=== PATIENT | female | born 1945 | race Caucasian/White ===

== ENCOUNTER → 2016-06-09 | Outpatient (CLI) | payer OTHER ==
[2016-06-09 14:26] LABS: Blood Urea Nitrogen 21 mg/dL (7-17); Non-African American GFR(MDRD) >60 (>60 ml/min/1.73 sqM)
--- NOTE | 2016-06-09 14:53 | US ---
EXAMINATION TYPE: US carotid duplex BILAT DATE OF EXAM: 06/09/2016 2:32 PM COMPARISON: NONE CLINICAL HISTORY: R20.0 Anesthesia of skin. Tingling right face EXAM MEASUREMENTS: RIGHT: Peak Systolic Velocity (PSV) cm/sec ----- Right CCA: 85.6 ----- Right ICA: 135.7 ----- Right ECA: 155.5 ICA/CCA ratio: 1.6 RIGHT: End Diastole cm/sec ----- Right CCA: 20.8 ----- Right ICA: 43.1 ----- Right ECA: 13.6 LEFT: Peak Systolic Velocity (PSV) cm/sec ----- Left CCA: 132.3 ----- Left ICA: 139.8 ----- Left ECA: 137.8 ICA/CCA ratio: 1.1 LEFT: End Diastole cm/sec ----- Left CCA: 32.1 ----- Left ICA: 39.2 ----- Left ECA: 13.6 VERTEBRALS (direction of flow): Right Vertebral: Antegrade Left Vertebral: Antegrade Moderate plaque bilateral bifurcations. Mildly Increased velocities bilateral ICA's and bilateral ECA 's IMPRESSION: Moderate plaque without hemodynamically significant stenosis. Criteria for Assigning % of Stenosis / Diameter reduction (Estimation based on the indirect measurements of the internal carotid artery velocities (ICA PSV). 1. Normal (no stenosis)=ICA PSV < 125 cm/s: ratio < 2.0: ICA EDV<40 cm/s. 2. Less than 50% stenosis=ICA PSV < 125 cm/s: ratio < 2.0: ICA EDV<40 cm/s. 3. 50 to 69% stenosis=ICA PSV of 125 to 230 cm/s: ration 2.0 ? 4.0: ICA EDV 40-100 cm/s. 4. Greater than 70% stenosis to near occlusion= ICA PSV > 230 cm/s: ratio > 4.0: ICA EDV > 100 cm/s. 5. Near occlusion= ICA PSV velocities may be low or undetectable: variable ratio and ICA EDV. 6. Total occlusion=unable to detect flow.
--- NOTE | 2016-06-09 15:03 | CT ---
EXAMINATION TYPE: CT brain wo/w con DATE OF EXAM: 06/09/2016 2:58 PM COMPARISON: NONE HISTORY: Anesthesia to face CT DLP: 1891.0 mGycm Automated exposure control for dose reduction was used. CONTRAST: CT scan of the head is performed with IV Contrast, patient injected with 100 mL of Omnipaque 300. FINDINGS: Central structures are midline. There is no evidence of hydrocephalus. There is mild, diffuse periven tricular white matter lucency, consistent with small vessel ischemic change. There is no mass effect, midline shift or intracranial blood. Following intravenous administration of contrast, I do not see evidence of abnormal enhancement. Visualized portions of the paranasal sinuses and mastoids are clear. There is no depressed skull frac ture. IMPRESSION: 1. No acute intracranial abnormality. 2. Chronic white matter ischemic change.
== END | disposition home or self-care (01) ==
LOC: RADCTMAIN 13:52
PROVIDERS: ATTEND Family Medicine
DX: I65.23 Occlusion and stenosis of bilateral carotid arteries (principal); I67.82 Cerebral ischemia
CPT/HCPCS: 82565; 84520; 93880; 70470; 36415; Q9967

== ENCOUNTER → 2017-01-05 | Outpatient (CLI) | payer OTHER ==
--- NOTE | 2017-01-06 11:01 | MM ---
Reason for exam: screening (asymptomatic). Last mammogram was performed 1 year and 1 month ago. History: Patient is postmenopausal. Family history of breast cancer in paternal aunt at age 20. Took hormonal contraceptives for 2 years beginning at age 26. Physical Findings: A clinical breast exam by your physician is recommended on an annual basis and results should be correlated with mammographic findings. MG Screening Mammo w CAD Bilateral CC and MLO view(s) were taken. Prior study comparison: December 05, 2015, bilateral MG screening mammo w CAD. December 29, 2013, bilateral MG screening mammo w CAD. The breast tissue is heterogeneously dense. This may lower the sensitivity of mammography. Stable benign calcifications. There is no discrete abnormality. No significant changes when compared with prior studies. ASSESSMENT: Benign, BI-RAD 2 RECOMMENDATION: Routine screening mammogram of both breasts in 1 year.
== END | disposition home or self-care (01) ==
LOC: RADMAMWWP 07:47
PROVIDERS: ATTEND Family Medicine
DX: Z12.31 Encounter for screening mammogram for malignant neoplasm of breast (principal)

== ENCOUNTER 2017-04-19 00:02 | Inpatient (IN) | payer OTHER, MEDICARE ==
[2017-04-19] MEDS ORDERED: SODIUM CHLORIDE 0.9% 1,000 ML IV STA (00:29)
--- NOTE | 2017-04-19 00:40 | ED ---
General Adult HPI - General Chief complaint: Chest Pain Stated complaint: Chest pain, back pain Time Seen by Provider: 04/19/17 00:11 Source: patient, RN notes reviewed, old records reviewed Mode of arrival: ambulatory Limitations: no limitations - History of Present Illness Initial comments: This is a 71-year-old female to the ER for evasive chest pain. Patient has severe right left sided chest pain. Heaviness in her chest. Patient also complaining of back pain in the left shoulder. Patient does say that pain does come and go ahead and for while. She does have high blood pressure high cholesterol. She states she also gets extremely elevated blood pressure which is in the hospital. Patient denies nausea vomiting no significant shortness of breath currently. Patient said she was not taking anything irregular with a chest pain started having of her chest. With no diaphoresis or shortness of breath. No recent travel history or sick contacts, no cough congestion or fever - Related Data Home Medications Medication Instructions Recorded Confirmed Aspirin [Adult Low Dose Aspirin EC] 81 mg PO 04/19/17 Allergies Allergy/AdvReac Type Severity Reaction Status Date / Time amoxicillin Allergy Rash/Hives Verified 04/19/17 00:09 Review of Systems ROS Statement: Those systems with pertinent positive or pertinent negative responses have been documented in the HPI. ROS Other: All systems not noted in ROS Statement are negative. Past Medical History Past Medical History: No Reported History History of Any Multi-Drug Resistant Organisms: None Reported Past Surgical History: No Surgical Hx Reported Past Psychological History: No Psychological Hx Reported Smoking Status: Former smoker Past Alcohol Use History: None Reported Past Drug Use History: None Reported General Exam Limitations: no limitations General appearance: alert, in no apparent distress, anxious Head exam: Present: atraumatic, normocephalic, normal inspection Eye exam: Present: normal appearance, PERRL, EOMI. Absent: scleral icterus, conjunctival injection, periorbital swelling ENT exam: Present: normal exam, mucous membranes moist Neck exam: Present: normal inspection. Absent: tenderness, meningismus, lymphadenopathy Respiratory exam: Present: normal lung sounds bilaterally. Absent: respiratory distress, wheezes, rales, rhonchi, stridor Cardiovascular Exam: Present: regular rate, normal rhythm, normal heart sounds. Absent: systolic murmur, diastolic murmur, rubs, gallop, clicks GI/Abdominal exam: Present: soft, normal bowel sounds. Absent: distended, tenderness, guarding, rebound, rigid Extremities exam: Present: normal inspection, full ROM, normal capillary refill. Absent: tenderness, pedal edema, joint swelling, calf tenderness Back exam: Present: normal inspection Neurological exam: Present: alert, oriented X3, CN II-XII intact Psychiatric exam: Present: normal affect, normal mood Skin exam: Present: warm, dry, intact, normal color. Absent: rash Course Vital Signs 04/19/17 04/19/17 04/19/17 00:05 01:44 04:09 Temperature 96.8 F L Pulse Rate 72 75 107 H Respiratory 20 18 18 Rate Blood Pressure 231/97 170/86 176/81 O2 Sat by Pulse 97 97 97 Oximetry - Reevaluation(s) Reevaluation #1: Patient remains a chest pain at this time, spoken at length regarding risks, family and patient understand EKG Findings - EKG Comments: EKG Findings:: EKG shows normal sinus rhythm rate of 76, TX 136, QRS 76, QTc 432 Medical Decision Making - Medical Decision Making 71 female the ER for evaluation of chest pain. Left-sided chest pain rating to back pain to her arm. Patient states she does have history of the back pain no history of chest pressure. Patient does have mild cardiac risk factors, I blood pressure cholesterol, patient will be admitted for cardiac observation - Lab Data Result diagrams: 04/19/17 01:06 04/19/17 01:06 Lab Results 04/19/17 04/19/17 04/19/17 Range/Units 01:06 01:06 01:06 WBC 6.8 (3.8-10.6) k/uL RBC 5.46 H (3.80-5.40) m/uL Hgb 15.9 (11.4-16.0) gm/dL Hct 45.5 (34.0-46.0) % MCV 83.4 (80.0-100.0) fL MCH 29.2 (25.0-35.0) pg MCHC 34.9 (31.0-37.0) g/dL RDW 13.5 (11.5-15.5) % Plt Count 271 (150-450) k/uL Neutrophils % 61 % Lymphocytes % 26 % Monocytes % 7 % Eosinophils % 3 % Basophils % 1 % Neutrophils # 4.1 (1.3-7.7) k/uL Lymphocytes # 1.7 (1.0-4.8) k/uL Monocytes # 0.5 (0-1.0) k/uL Eosinophils # 0.2 (0-0.7) k/uL Basophils # 0.1 (0-0.2) k/uL PT (9.0-12.0) sec INR (<1.2) APTT (22.0-30.0) sec Sodium 143 (137-145) mmol/L Potassium 4.1 (3.5-5.1) mmol/L Chloride 108 H (98-107) mmol/L Carbon Dioxide 22 (22-30) mmol/L Anion Gap 13 mmol/L BUN 20 H (7-17) mg/dL Creatinine 0.90 (0.52-1.04) mg/dL Est GFR (CKD-EPI)AfAm 75 (>60 ml/min/1.73 sqM) Est GFR (CKD-EPI)NonAf 65 (>60 ml/min/1.73 sqM) Glucose 116 H (74-99) mg/dL Calcium 9.9 (8.4-10.2) mg/dL Magnesium 2.1 (1.6-2.3) mg/dL Total Bilirubin 0.7 (0.2-1.3) mg/dL AST 22 (14-36) U/L ALT 20 (9-52) U/L Alkaline Phosphatase 75 (38-126) U/L Total Creatine Kinase 67 (30-135) U/L CK-MB (CK-2) 0.5 (0.0-2.4) ng/mL CK-MB (CK-2) Rel Index 0.7 Troponin I <0.012 (0.000-0.034) ng/mL NT-Pro-B Natriuret Pep pg/mL Total Protein 7.3 (6.3-8.2) g/dL Albumin 4.2 (3.5-5.0) g/dL Lipase 75 (23-300) U/L 04/19/17 04/19/17 Range/Units 01:06 01:06 WBC (3.8-10.6) k/uL RBC (3.80-5.40) m/uL Hgb (11.4-16.0) gm/dL Hct (34.0-46.0) % MCV (80.0-100.0) fL MCH (25.0-35.0) pg MCHC (31.0-37.0) g/dL RDW (11.5-15.5) % Plt Count (150-450) k/uL Neutrophils % % Lymphocytes % % Monocytes % % Eosinophils % % Basophils % % Neutrophils # (1.3-7.7) k/uL Lymphocytes # (1.0-4.8) k/uL Monocytes # (0-1.0) k/uL Eosinophils # (0-0.7) k/uL Basophils # (0-0.2) k/uL PT 9.8 (9.0-12.0) sec INR 1.0 (<1.2) APTT 23.5 (22.0-30.0) sec Sodium (137-145) mmol/L Potassium (3.5-5.1) mmol/L Chloride (98-107) mmol/L Carbon Dioxide (22-30) mmol/L Anion Gap mmol/L BUN (7-17) mg/dL Creatinine (0.52-1.04) mg/dL Est GFR (CKD-EPI)AfAm (>60 ml/min/1.73 sqM) Est GFR (CKD-EPI)NonAf (>60 ml/min/1.73 sqM) Glucose (74-99) mg/dL Calcium (8.4-10.2) mg/dL Magnesium (1.6-2.3) mg/dL Total Bilirubin (0.2-1.3) mg/dL AST (14-36) U/L ALT (9-52) U/L Alkaline Phosphatase (38-126) U/L Total Creatine Kinase (30-135) U/L CK-MB (CK-2) (0.0-2.4) ng/mL CK-MB (CK-2) Rel Index Troponin I (0.000-0.034) ng/mL NT-Pro-B Natriuret Pep 65 pg/mL Total Protein (6.3-8.2) g/dL Albumin (3.5-5.0) g/dL Lipase (23-300) U/L - Radiology Data Radiology results: report reviewed (CTA chest negative for acute disease), image reviewed Critical Care Time Critical Care Time: Yes Total Critical Care Time: 31 Disposition Clinical Impression: Chest pain Disposition: ADMITTED IP TO THIS HOSP Condition: Undetermined
[2017-04-19] MEDS ORDERED: RX INFO: IV CONTRAST WAS GIVEN 1 EACH MISC MISCELLANE PRN ×2 (00:58→11:58)
[2017-04-19 01:20] LABS: Basophils # (A) 0.1 k/uL (0-0.2); Basophils % (A) 1 %; Eosinophils # (A) 0.2 k/uL (0-0.7); Eosinophils % (A) 3 %; HCT 45.5 % (34.0-46.0); HGB 15.9 gm/dL (11.4-16.0); Lymphocytes # (A) 1.7 k/uL (1.0-4.8); Lymphocytes % (A) 26 %; MCH 29.2 pg (25.0-35.0); MCHC 34.9 g/dL (31.0-37.0); MCV 83.4 fL (80.0-100.0); Mean Platelet Volume 7.4; Monocytes # (A) 0.5 k/uL (0-1.0); Monocytes % (A) 7 %; Neutrophils # (A) 4.1 k/uL (1.3-7.7); Neutrophils % (A) 61 %; Platelet Count 271 k/uL (150-450); RBC 5.46 m/uL (3.80-5.40); RDW 13.5 % (11.5-15.5); WBC 6.8 k/uL (3.8-10.6)
[2017-04-19 01:30] LABS: Albumin 4.2 g/dL (3.5-5.0); Calcium 9.9 mg/dL (8.4-10.2); Magnesium 2.1 mg/dL (1.6-2.3); Potassium 4.1 mmol/L (3.5-5.1); Total Bilirubin 0.7 mg/dL (0.2-1.3); Total Protein 7.3 g/dL (6.3-8.2)
[2017-04-19 01:34] LABS: Partial Thromboplastin Time 23.5 sec (22.0-30.0); Prothrombin Time 9.8 sec (9.0-12.0)
[2017-04-19 01:49] LABS: Creatine Kinase 67 U/L (30-135)
[2017-04-19 03:02] LABS: Creatine Kinase MB 0.5 ng/mL (0.0-2.4); Troponin I <0.012 ng/mL (0.000-0.034)
--- NOTE | 2017-04-19 03:19 | CT ---
EXAMINATION TYPE: CT angio chest DATE OF EXAM: 04/19/2017 3:10 AM COMPARISON: NONE HISTORY: chest pain CT DLP: 257.80 mGycm Automated exposure control for dose reduction was used. CONTRAST: CTA scan of the thorax is performed with IV Contrast, patient injected with 70 mL of Omnipaque 350, p ulmonary embolism protocol. There are 3-D post processed images.. FINDINGS: There is minimal linear density at the right posterior lung base. There is no pleural effusion. There is no evidence of a pulmonary mass. Thoracic aorta is intact. There is no sign of aneurysm or dissection. Heart size is normal. There is no pericardial effusion. I see no filling defects in the pulmonary arteries. There are no hilar masses. There is no mediastina l adenopathy. There is minimal atheromatous change in the thoracic aorta. There is mild spurring in t he thoracic spine.. IMPRESSION: NO EVIDENCE OF PULMONARY EMBOLISM. MINIMAL SUBSEGMENTAL ATELECTASIS AT THE RIGHT LUNG BASE. SMALL HIA NATANAEL HERNIA IS NOTED. MINIMAL PULMONARY EMPHYSEMA.
[2017-04-19] MEDS ORDERED: HEPARIN SODIUM,PORCINE 5,000 UNIT/ML 1 ML VIAL IV PRN (03:45)
[2017-04-19] MEDS ORDERED: HEPARIN SODIUM,PORCINE 5,000 UNIT/ML 1 ML VIAL IV ONE (03:45)
[2017-04-19] MEDS ORDERED: MORPHINE SULFATE 4 MG/ML SYRINGE IV PRN (03:45)
[2017-04-19] MEDS ORDERED: ASPIRIN 81 MG PO STA (03:45)
[2017-04-19] MEDS ORDERED: NITROGLYCERIN SL TABS 0.4 MG TAB SUBLINGUAL PRN (03:45)
[2017-04-19] MEDS: HEPARIN SOD,PORK IN 0.45% NACL 25,000 UNIT in 0.45% NACL 1 500ML.BAG IV SCH (04:22)
[2017-04-19 08:41] LABS: Mean Platelet Volume 7.3; Platelet Count 255 k/uL (150-450)
[2017-04-19] MEDS ORDERED: ATORVASTATIN 80 MG TAB PO SCH (09:00)
[2017-04-19] MEDS ORDERED: METOPROLOL TARTRATE 25 MG TAB PO SCH (09:00)
[2017-04-19 09:13] LABS: Creatine Kinase MB 1.2 ng/mL (0.0-2.4)
[2017-04-19 09:17] LABS: Troponin I 0.232 ng/mL (0.000-0.034)
[2017-04-19 13:45] LABS: Creatine Kinase MB 1.6 ng/mL (0.0-2.4)
[2017-04-19 13:49] LABS: Troponin I 0.227 ng/mL (0.000-0.034)
--- NOTE | 2017-04-19 14:04 | P.CRDCN ---
History of Present Illness History of present illness: Patient admitted with chest discomfort, recurrent for the last 2-3 days elevated blood pressure readings at home On examination Afebrile 97.6F, pulse rate in the 60s and 70s, blood pressure 176/81 mmHg Heart sounds are normal no murmurs no gallops no rub breath sounds are clear no rhonchi no crackles Abdomen soft nontender Extremities warm no edema No chronic bruits no JVD 2 normal serial EKGs Impression 71-year-old female presenting with interscapular chest discomfort and midsternal chest discomfort no associated symptoms Abnormal cardiac enzymes 0.012 followed by 0.2 and 0.2 History of dyslipidemia patient stopped statins on account of leg pains but the leg pains continued thereafter Elevated blood pressure readings Suggest Losartan 50 g by mouth daily Carvedilol 3.125 mg twice daily Atorvastatin 40 mg by mouth daily Baby aspirin Reevaluation after blood pressure control Past Medical History Past Medical History: No Reported History History of Any Multi-Drug Resistant Organisms: None Reported Past Surgical History: No Surgical Hx Reported Past Psychological History: No Psychological Hx Reported Smoking Status: Former smoker Past Alcohol Use History: None Reported Past Drug Use History: None Reported Medications and Allergies Home Medications Medication Instructions Recorded Confirmed Type Aspirin [Adult Low Dose Aspirin EC] 81 mg PO W/SUPPER 04/19/17 04/19/17 History Cholecalciferol (Vitamin D3) 2,000 unit PO W/SUPPER 04/19/17 04/19/17 History [Vitamin D3] Cyanocobalamin (Vitamin B-12) 1,000 mcg PO W/SUPPER 04/19/17 04/19/17 History [Vitamin B-12] Ubidecarenone [Co Q-10] 100 mg PO W/SUPPER 04/19/17 04/19/17 History Allergies Allergy/AdvReac Type Severity Reaction Status Date / Time amoxicillin Allergy Rash/Hives Verified 04/19/17 07:21 Physical Exam Vitals: Vital Signs Temp Pulse Resp BP Pulse Ox 04/19/17 13:46 97.6 F 73 18 190/98 96 04/19/17 11:31 69 18 188/83 98 04/19/17 09:40 80 18 161/86 96 04/19/17 06:00 74 18 144/80 96 04/19/17 04:09 107 H 18 176/81 97 04/19/17 01:44 75 18 170/86 97 04/19/17 00:05 96.8 F L 72 20 231/97 97 Intake and Output 04/18/17 04/19/17 04/19/17 21:59 06:59 14:59 Other: Weight Results 04/19/17 08:23 04/19/17 01:06 Cardiac Enzymes 04/19/17 04/19/17 04/19/17 Range/Units 01:06 01:06 08:23 AST 22 (14-36) U/L CK-MB (CK-2) 0.5 1.2 (0.0-2.4) ng/mL Troponin I <0.012 0.232 H* (0.000-0.034) ng/mL 04/19/17 Range/Units 12:36 AST (14-36) U/L CK-MB (CK-2) 1.6 (0.0-2.4) ng/mL Troponin I 0.227 H* (0.000-0.034) ng/mL Coagulation 04/19/17 04/19/17 Range/Units 01:06 08:23 PT 9.8 (9.0-12.0) sec APTT 23.5 53.0 H (22.0-30.0) sec CBC 04/19/17 04/19/17 Range/Units 01:06 08:23 WBC 6.8 (3.8-10.6) k/uL RBC 5.46 H (3.80-5.40) m/uL Hgb 15.9 (11.4-16.0) gm/dL Hct 45.5 (34.0-46.0) % Plt Count 271 255 (150-450) k/uL Comprehensive Metabolic Panel 04/19/17 Range/Units 01:06 Sodium 143 (137-145) mmol/L Potassium 4.1 (3.5-5.1) mmol/L Chloride 108 H (98-107) mmol/L Carbon Dioxide 22 (22-30) mmol/L BUN 20 H (7-17) mg/dL Creatinine 0.90 (0.52-1.04) mg/dL Glucose 116 H (74-99) mg/dL Calcium 9.9 (8.4-10.2) mg/dL AST 22 (14-36) U/L ALT 20 (9-52) U/L Alkaline Phosphatase 75 (38-126) U/L Total Protein 7.3 (6.3-8.2) g/dL Albumin 4.2 (3.5-5.0) g/dL Current Medications Generic Name Dose Route Start Last Admin Trade Name Freq PRN Reason Stop Dose Admin Aspirin 325 mg 04/20/17 09:00 Aspirin PO DAILY [facility] Atorvastatin Calcium 40 mg 04/19/17 13:30 Lipitor PO DAILY [facility] Heparin Sodium (Porcine) 0 unit 04/19/17 03:45 Heparin IV Q6HR PRN Low PTT Protocol Heparin Sodium/Sodium Chloride 500 mls @ 16.32 mls/hr 04/19/17 03:45 04:22 25,000 unit/ Sodium Chloride IV 12 units/kg/hr .Q24H JOVANNI 16.32 mls/hr Protocol Administration 12 UNITS/KG/HR Metoprolol Tartrate 25 mg 04/19/17 09:00 04/19/17 10:10 Lopressor PO 25 mg BID JOVANNI Administration Miscellaneous Information 1 each 04/19/17 00:58 04/19/17 01:45 Rx Info: Iv Contrast Was Given MISCELLANE 04/21/17 00:59 1 each DAILY PRN Administration Per Protocol Miscellaneous Information 1 each 04/19/17 11:58 Rx Info: Iv Contrast Was Given MISCELLANE 04/21/17 11:59 DAILY PRN Per Protocol Morphine Sulfate 4 mg 04/19/17 03:45 Morphine Sulfate (Inj) IV Q5M PRN Chest Pain Nitroglycerin 0.4 mg 04/19/17 03:45 Nitrostat SUBLINGUAL Q5M PRN Chest Pain Intake and Output 04/18/17 04/19/17 04/19/17 21:59 06:59 14:59 Other: Weight 04/19/17 08:23 04/19/17 01:06
[2017-04-19] MEDS ORDERED: LOSARTAN 50 MG TAB PO SCH (14:15)
[2017-04-19] MEDS: ATORVASTATIN 40 MG TAB PO SCH (16:37)
[2017-04-19] MEDS: CARVEDILOL 3.125 MG TAB PO SCH (17:35)
[2017-04-20] MEDS: HEPARIN SOD,PORK IN 0.45% NACL 25,000 UNIT in 0.45% NACL 1 500ML.BAG IV SCH (03:51)
[2017-04-20 06:09] LABS: Mean Platelet Volume 7.5; Platelet Count 216 k/uL (150-450)
[2017-04-20 06:33] LABS: HDL Cholesterol 53 mg/dL (40-60); Triglycerides 280 mg/dL (<150)
[2017-04-20 06:39] LABS: LDL Cholesterol,Calculated 240 mg/dL (0-99)
[2017-04-20 06:42] LABS: Cholesterol 349 mg/dL (<200)
[2017-04-20] MEDS: ATORVASTATIN 40 MG TAB PO SCH (08:33)
[2017-04-20] MEDS: CARVEDILOL 3.125 MG TAB PO SCH ×2 (08:33→15:36)
[2017-04-20] MEDS: LOSARTAN 50 MG TAB PO SCH (08:34)
[2017-04-20] MEDS ORDERED: ASPIRIN 325 MG TAB PO SCH (09:00)
--- NOTE | 2017-04-20 10:02 | P.PN ---
Subjective Patient has not had any further chest discomfort. She was admitted with upper back discomfort as well as chest discomfort consistent with angina. She has a history of hypertension and her blood pressures are not controlled. On examination she is afebrile Temperature 97.1, pulse rate in the 60s and 70s, respirations normal, blood pressure 173/81 mmHg, consistently elevated Breath sounds are normal no rhonchi no crackles Abdomen is soft nontender Heart sounds are normal no murmurs no gallops no rub Extended is warm no edema Labs are reviewed hemoglobin 15.9, electrolytes normal, BUN and creatinine normal, glucose mildly elevated, First troponin was normal second troponin was elevated and so was the third Triglycerides 280, cholesterol 349, LDL 240, HDL 53 Review of systems: No fever chills or rigors, no cough, phlegm or expectoration , no nausea, vomiting or diarrhea, no hematuria, dysuria, no musculoskeletal complaints, no strokes or seizures, no skin lesions. 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 I will increase the dose of losartan 200 mg by mouth daily while continuing carvedilol I would recommend proceeding with coronary angiography Atorvastatin 40 mg by mouth daily She had complained of leg pains in the past and had stopped the statins but her leg pains continued after that I had a very detailed discussion with her and her family members and I would recommend coronary angiography along with medical treatment. I'm not recommending a stress test I would control her blood pressure first and then received with angiography to evaluate for epicardial coronary artery disease given her risk factors and the symptoms she presented with She had lots of questions and is very unsure about proceeding with coronary angiography. She is also unsure about her blood pressure medications and is wondering what's causing her flushing in her face. I emphasized the need for salt restricted diet, compliance with medications both antihypertensive therapy as well as statins and aspirin I explained that it is her choice whether to proceed with coronary angiography She will think about it today while I control her blood pressure. I would recommend it be performed as an inpatient Compliance with medical treatment is essential Minor side effects like muscle aches should be tolerated given the level of her LDL Objective - Vital Signs Vital signs: Vital Signs Temp 97.1 F L 03/12/18 04:00 Pulse 68 04/20/17 04:00 Resp 16 04/20/17 04:00 BP 173/81 04/20/17 04:00 Pulse Ox 94 L 04/20/17 04:00 Intake & Output 04/19/17 04/20/17 04/20/17 18:59 06:59 18:59 Intake Total 230 749.312 0 Balance 230 749.312 0 Weight 69 kg Intake: IV 322 Heparin Sod,Pork in 0.45% 142 NaCl 25,000 unit In 0.45 % NaCl 1 500ml.bag @ 12 UNITS/KG/HR 16.32 mls/hr IV .Q24H JOVANNI Rx#: [id number] Sodium Chloride 0.9% 1, 180 000 ml @ 100 mls/hr IV . Q10H STA Rx#:[id number] Intake, IV Titration 427.312 Amount Heparin Sod,Pork in 0.45% 427.312 NaCl 25,000 unit In 0.45 % NaCl 1 500ml.bag @ 12 UNITS/KG/HR 16.32 mls/hr IV .Q24H JOVANNI Rx#: [id number] Oral 230 0 Other: Voiding Method Toilet Toilet # Voids 1 1 - Labs CBC & Chem 7: 04/20/17 05:34 04/19/17 01:06 Labs: Abnormal Lab Results - Last 24 Hours (Table) 04/19/17 04/20/17 04/20/17 Range/Units 12:36 05:34 05:34 APTT 50.4 H (22.0-30.0) sec Troponin I 0.227 H* (0.000-0.034) ng/mL Triglycerides 280 H (<150) mg/dL Cholesterol 349 H (<200) mg/dL LDL Cholesterol, Calc 240 H (0-99) mg/dL
[2017-04-20] MEDS ORDERED: ASPIRIN 81 MG PO SCH (10:03)
[2017-04-20 12:00] LABS: T4, Free (Free Thyroxine) 1.7 ng/dL (0.78-2.19)
--- NOTE | 2017-04-20 14:26 | HP ---
HISTORY AND PHYSICAL CHIEF COMPLAINT: Chest, back and shoulder pain. HISTORY OF PRESENT ILLNESS: This is another admission for this 71-year-old white female. She has had hypertension for years. Whenever she is seen in the office, her blood pressure is extremely high. She states at home that it runs fairly normal in the range of about 140/80. She also has an extremely high cholesterol and she is unable to take statins. She came to the emergency room with some pain in the left shoulder blade area, discomfort in the left shoulder and some pressure-like discomfort in the chest. She denies any shortness of breath, diaphoresis and some nausea, etc. She states that she has had that pain in the left posterior shoulder for years and she has been having discomfort in the left shoulder and chest on, off for about a week. It will last about 1/2 hour and go away and it is not related to exertion. She describes the pain in the chest as being burning. In the emergency room, her blood pressure was elevated and her cardiac enzymes are normal, but it was reported that her second one may be elevated. REVIEW OF SYSTEMS: She has had no syncope, change in vision or hearing, shortness of breath, orthopnea, murmurs, rheumatic fever, abdominal pain, nausea, vomiting, hematemesis, melena, hematochezia, easy gamma jaundice, hematuria, frequency, urgency, arthralgias, diabetes cancer past medical history, family history and social history are all otherwise unremarkable or noncontributory. In she does not smoke or drink. PHYSICAL EXAM: Blood pressure is 220/100 with a pulse of 85, respirations of 30 and she is afebrile general she appeared to be well developed, well nourished, in no acute distress. Skin color is normal skin is warm, dry. Lymph nodes not enlarged. Head, ears, eyes, nose, mouth, and throat were normal neck veins not distended. Thyroid not enlarged. Chest is clear. Cardiac exam is normal with no murmurs or extra sounds. The abdomen is soft and nontender. EXTREMITIES: Normal. Neurologically is intact. She is admitted to the hospital. DIAGNOSIS: Chest and left posterior back pain with a history of hypertension, hyperlipidemia. PLAN: 1. Bed rest. 2. IV fluids. 3. Serial EKGs and enzymes. 4. Cardiology consult. 5. Rule out pulmonary emboli and aortic disease. 6. Discuss possibility plan bed rest. 7. CT of the chest to rule out pulmonary emboli and aortic disease. 8. Discuss the PCSK9 inhibitor. MMODL / IJN: [id number] /
[2017-04-20] MEDS ORDERED: MORPHINE ORAL SOLN 10 MG/5 ML CUP PO PRN (14:27)
--- NOTE | 2017-04-20 14:30 | PN ---
PROGRESS NOTE DATE OF SERVICE: 04/20/2017 CHIEF COMPLAINT: Chest pain. HISTORY OF PRESENT ILLNESS: This lady is doing fairly well and she has been seen by Cardiology. She is concerned because it is recommended she have a cardiac catheterization. She is not sure that she wants this and she may want it done somewhere else. It was explained that it was likely to be a very important tests for her and she should not delay it. She will talk to her family about this. PHYSICAL EXAM: Chest is clear and cardiac exam is normal and the abdomen is soft, nontender. IMPRESSION: 1. Chest pain. 2. Hypertension. 3. Hyperlipidemia. PLAN: Await further recommendations from Cardiology, but the patient was encouraged to proceed with cardiac cath rather than delay. MMODL / IJN: [id number] /
--- NOTE | 2017-04-20 17:12 | CONS ---
CONSULTATION Rosemarie Paulino is a 71-year-old female who presented to the emergency room with interscapular and left-sided pectoral chest pain; this would come and go for the last 2- 3 days prior to her admission through the ER. REVIEW OF SYSTEMS: No fever, chills or rigors. No cough or expectoration. No nausea, vomiting or diarrhea. No hematuria or dysuria. No strokes or seizures. No skin lesions. No musculoskeletal complaints. She denied any palpitations, orthopnea, PND. HOME MEDICATIONS: Medications at home include aspirin. She stopped atorvastatin. ALLERGIES: AMOXICILLIN. PAST HISTORY: 1. Dyslipidemia. 2. No diagnosis of hypertension, but she states that at home her blood pressures have been elevated. SOCIAL HISTORY: She is a former smoker. PHYSICAL EXAMINATION: Her blood pressure was 176/81 mmHg. Heart rate was in the 70s. Head and neck examination normal. Heart sounds are normal. LUNGS: Clear on auscultation. Extremities are warm. No edema. Labs are reviewed. Please see impression and plan that was dictated separately. MMODL / IJN: [id number] /
[2017-04-21 06:34] LABS: Mean Platelet Volume 7.1; Platelet Count 244 k/uL (150-450)
[2017-04-21] MEDS: CARVEDILOL 3.125 MG TAB PO SCH ×2 (06:40→17:06)
[2017-04-21] MEDS: ATORVASTATIN 40 MG TAB PO SCH (08:10)
[2017-04-21] MEDS: LOSARTAN 50 MG TAB PO SCH (08:10)
--- NOTE | 2017-04-21 09:06 | P.PN ---
Subjective Patient is doing well. She denies any chest discomfort. Her blood pressure is a lot better. But pressure 147/72 mmHg and 130/67 mmHg pulse rate in the 70s afebrile 97F Breath sounds are clear no rhonchi no crackles Heart sounds S1 and S2 are normal no murmurs or gallops or rub Abdomen is soft nontender Extremities are warm no edema No JVD Impression Patient admitted with recurrent interscapular and left precordial chest pain with borderline abnormal troponins Hypertension, elevated blood pressures which are now controlled LDL 240 consistent with familial hypercholesterolemia TSH mildly elevated Suggest Add a detailed discussion with the patient regarding coronary angiography yesterday and she was not sure about this. Her blood pressure has not been well controlled and she is now agreeable to proceed with an angiogram Continue aspirin and statins Continue Cozaar 100 mg daily, continue carvedilol 3.125 g twice daily Objective - Vital Signs Vital signs: Vital Signs Temp 97 F L 04/21/17 08:00 Pulse 74 04/21/17 08:00 Resp 16 04/21/17 08:00 BP 130/67 04/21/17 08:00 Pulse Ox 93 L 04/21/17 08:00 Intake & Output 04/20/17 04/21/17 04/21/17 18:59 06:59 18:59 Intake Total 220 360 Balance 220 360 Weight 68.9 kg Intake: Oral 220 360 Other: Voiding Method Toilet # Voids 1 - Labs CBC & Chem 7: 04/21/17 06:08 04/19/17 01:06 Labs: Abnormal Lab Results - Last 24 Hours (Table) 04/20/17 Range/Units 05:34 TSH 5.210 H (0.465-4.680) mIU/L
[2017-04-21] MEDS ORDERED: ALPRAZolam 0.25 MG TAB PO PRN (09:29)
[2017-04-21] MEDS ORDERED: ALPRAZolam 0.5 MG TAB PO PRN (09:29)
[2017-04-21] MEDS ORDERED: ATORVASTATIN 80 MG TAB PO STA (09:29)
[2017-04-21] MEDS ORDERED: SODIUM CHLORIDE 0.9% 1,000 ML in EMPTY BAG 1 BAG IV ONE (09:29)
[2017-04-21] MEDS ORDERED: ASPIRIN 325 MG TAB PO STA (09:29)
[2017-04-21] MEDS ORDERED: NITROGLYCERIN SL TABS 0.4 MG TAB SUBLINGUAL PRN ×2 (09:29→12:52)
--- NOTE | 2017-04-21 09:36 | P.PCN ---
Preoperative Diagnosis: Loop monitor implant Primary physicians: Event Promoter: Dr. Luciano Indication: Recurrent dizzy spells and episode of presyncope while sitting frequent PVCs nonsustained atrial tachycardia nonobstructive CAD normal LV function mild prolonged ME interval mild sinus bradycardia Patient was brought to the EP lab in a fasting state. Written informed consent was obtained prior to the procedure. The left pectoral area was prepped and draped per protocol. Intravenous antibiotic was administered preoperatively. A subcutaneous Loop monitor was implanted successfully and the wound was closed per protocol. The device was programmed to detect significant delfina- arrhythmic and tachy-arrhythmic events, per protocol. Device and programming details: Programming to detect bradycardia and nonsustained ventricular tachycardia possible causes of recurrent dizzy spells Patient underwent EP procedure under conscious sedation/moderate sedation, monitoring of the level of consciousness and physiologic parameters including but not limited to vital signs and oxygenation. Patient tolerated the procedure well without any acute complications. Start time: 0918 Stop time: 9:30
[2017-04-21 10:11] LABS: Calcium 9.4 mg/dL (8.4-10.2); Potassium 3.9 mmol/L (3.5-5.1)
[2017-04-21] MEDS ORDERED: fentaNYL (PF) 50 MCG/ML 2 ML AMP ONE (10:25)
[2017-04-21] MEDS ORDERED: MIDAZOLAM 2 MG/2 ML VIAL ONE (10:25)
[2017-04-21] MEDS ORDERED: IV FLUID CONTINUATION 950 ML IV ONE (10:44)
[2017-04-21] MEDS ORDERED: MIDAZOLAM 2 MG/2 ML VIAL IVP ONE (11:04)
[2017-04-21] MEDS: LIDOCAINE 2% INJ 20 MG/ML SQ ONE ×2 (11:08→12:42)
--- NOTE | 2017-04-21 11:52 | CC ---
CARDIAC CATHETERIZATION REPORT INDICATION: Non ST-segment elevation myocardial infarction. PROCEDURE NOTE: After obtaining informed consent, left heart catheterization, coronary angiogram are performed via the right femoral artery using standard Renee catheters. The patient tolerated the procedure well without any obvious immediate complications. Patient received moderate conscious sedation. Total sedation time was 20 minutes. FINDINGS: 1. HEMODYNAMICS: Left ventricular end-diastolic pressure is 14 to 16 mm. There is no significant gradient across the aortic valve. 2. LEFT VENTRICULOGRAM: Left ventriculogram is not performed. 3. ANGIOGRAPHIC DATA: Left main coronary artery: Left main coronary artery appears calcified, but is free of stenosis. Divides into left anterior descending coronary artery and circumflex coronary artery. The circumflex coronary artery is a nondominant vessel. Both LAD and circ are free of stenosis. Right coronary artery is a large dominant vessel that also appears calcified. There is a focal 70% to 80% stenosis involving the mid RCA. PLAN: A 70% to 80% stenosis involving mid RCA, the patient will undergo angioplasty with stent placement of the same. The patient was explained of her cath findings and treatment. MMODL / IJN: [id number] /
[2017-04-21] MEDS ORDERED: BIVALIRUDIN 250 MG in SODIUM CHLORIDE 0.9% 35 ML IV ONE (12:20)
[2017-04-21] MEDS ORDERED: BIVALIRUDIN BOLUS 250 MG/50 ML IV ONE (12:20)
[2017-04-21] MEDS ORDERED: CLOPIDOGREL 75 MG TAB ONE (12:26)
[2017-04-21] MEDS ORDERED: CLOPIDOGREL 75 MG TAB PO ONE (12:30)
[2017-04-21] MEDS ORDERED: IOHEXOL 350 MG/ML 125ML BOTTLE INJ ONE (12:40)
[2017-04-21] MEDS ORDERED: fentaNYL (PF) 50 MCG/ML 2 ML AMP IV ONE (12:44)
[2017-04-21] MEDS ORDERED: ZOLPIDEM 5 MG TAB PO PRN (12:52)
[2017-04-21] MEDS ORDERED: MAG HYDROX/AL HYDROX/SIMETH 30 ML CUP PO PRN (12:52)
[2017-04-21] MEDS ORDERED: RX INFO: IV CONTRAST WAS GIVEN 1 EACH MISC MISCELLANE PRN (12:52)
[2017-04-21] MEDS ORDERED: ATROPINE SULFATE 0.1 MG/ML 10ML SYRINGE IV PRN (12:52)
[2017-04-21] MEDS ORDERED: SODIUM CHLORIDE 0.9% 1,000 ML IV SCH (13:00)
[2017-04-21 14:26] VITALS: BMI 27.8
--- NOTE | 2017-04-21 15:19 | AN ---
ANGIOGRAPHY REPORT DATE OF SERVICE: April 21, 2017 PERFORMING PHYSICIAN: Jacques Ruelas MD, show jumping instructor. PROCEDURE PERFORMED: Successful stenting of the mid RCA using 3.5 x 20 mm Promus Premier drug-eluting stent with good angiographic results. INDICATION: This is a pleasant 71-year-old female, who presented to the hospital with chest discomfort and mildly abnormal cardiac enzymes and she underwent a heart catheterization by Dr. De La Garza and that revealed severe disease involving the mid RCA. She underwent a heart catheterization by Dr. De La Garza and that revealed severe disease involving the mid RCA. The decision was made towards percutaneous coronary intervention. APPROACH: Right common femoral artery. COMPLICATION: None. LEVEL OF SEDATION: Moderate with sedation length of 24 minutes. PROCEDURE DESCRIPTION: After diagnostic heart catheterization was performed by Dr. De La Garza and after reviewing the angiogram, we decided to pursue with an intervention on the RCA. Anticoagulation was initiated using Angiomax. Subsequently I took a JR4 guide and the RCA was engaged. A whisper wire was used to wire the RCA. Subsequently I did PTCA ballooning using 3.0 mm balloon and after that I deployed a 3.5 x 20 mm Promus Premier drug-eluting stent where the stent was positioned under fluoroscopy guidance and deployed under 12 atmospheres for 20 seconds. The following angiogram showed good angiographic results. The procedure was completed without any complication. POSTPROCEDURE MANAGEMENT: 1. Dual anti-platelet therapy. 2. Risk factors modifications. 3. Follow up with the patient. MMODL / IJN: [id number] /
--- NOTE | 2017-04-21 19:16 | PN ---
PROGRESS NOTE DATE OF SERVICE: 04/21/2017 CHIEF COMPLAINT: Chest pain. HISTORY OF PRESENT ILLNESS: This lady is doing well. She is not having any further pain. She is going for a cardiac cath today. PHYSICAL EXAMINATION: Her chest is clear. The cardiac exam is normal. Abdomen is soft, nontender. IMPRESSION: 1. Chest pain with elevated troponin. 2. History of hypertension. 3. History of hyperlipidemia. PLAN: Await results of her catheterization. MMODL / IJN: [id number] /
[2017-04-22] MEDS: CARVEDILOL 3.125 MG TAB PO SCH (06:35)
[2017-04-22] MEDS: ATORVASTATIN 40 MG TAB PO SCH (08:05)
[2017-04-22] MEDS: LOSARTAN 50 MG TAB PO SCH (08:05)
[2017-04-22 08:08] VITALS: RESP 18
[2017-04-22] MEDS ORDERED: ASPIRIN 325 MG TAB PO SCH (09:00)
--- NOTE | 2017-04-22 10:21 | P.PN ---
Subjective Patient is doing well. She denies any chest discomfort no undue shortness of breath no dizziness or lightheadedness She underwent coronary stenting yesterday for a RCA stenosis. She had visual been admitted with angina like symptoms with mildly abnormal troponins On examination she is afebrile 90 7. identified by pulse rate in the 70s, blood pressure 115/63 mmHg Breath sounds are clear no rhonchi no crackles Heart sounds are normal normal S1 normal S2 Abdomen is soft nontender Extremities warm no edema Labs are reviewed BUN 20 creatinine 0.9 potassium 3.9 Impression Non-Q wave myocardial infarction Hypertension LDL 240 Familial hypercholesterolemia Suggest Patient may go home from a cardiac standpoint today and follow-up with Dr. Luciano. She should continue aspirin 81 mg by mouth daily, atorvastatin 80 mg daily, carvedilol 3.125 mg twice daily, Plavix 75 mg daily, losartan 100 mg daily Follow-up with Dr. Luciano in 1-2 weeks Objective - Vital Signs Vital signs: Vital Signs Temp 97.9 F 04/22/17 08:05 Pulse 77 04/22/17 08:05 Resp 18 04/22/17 08:05 BP 114/63 04/22/17 08:05 Pulse Ox 94 L 04/22/17 08:05 Intake & Output 04/21/17 04/22/17 04/22/17 18:59 06:59 18:59 Intake Total 830 700 100 Output Total 200 Balance 630 700 100 Weight 68.9 kg 69.2 kg Intake: IV 270 100 IV Fluid Continuation 950 200 ml As IV .STK-MED ONE Rx #:[id number] Sodium Chloride 0.9% 1, 70 100 000 ml In Empty Bag 1 bag @ 1 ML/KG/HR 68.9 mls/hr IV .[id number] ONE Rx#: [id number] Intake, IV Titration 100 Amount Sodium Chloride 0.9% 1, 100 000 ml @ 100 mls/hr IV . Q10H [facility] Rx#:[id number] Oral 560 600 Output: Urine 200 Other: Voiding Method Toilet Toilet Toilet # Voids 1 2 - Labs CBC & Chem 7: 04/21/17 06:08 04/22/17 06:28
[2017-04-22 11:24] VITALS: BP 151/78; PULSE 71; TEMP 97
[2017-04-22] MEDS ORDERED: CLOPIDOGREL 75 MG TAB PO SCH (12:00)
--- NOTE | 2017-04-22 22:53 | DS ---
DISCHARGE SUMMARY . CHIEF COMPLAINT: Chest pain. HISTORY OF PRESENT ILLNESS AND PHYSICAL EXAM: The details of this lady's history and physical can be found in the initial workup. LABORATORY STUDIES: While she was in a hospital she had laboratory studies, details of which can be found in the laboratory section of her chart. COURSE IN HOSPITAL: After admission she was placed on bedrest, started on the intravenous fluids and she had serial EKGs and enzymes. Troponin elevated. She was seen by Cardiology. She was taken to the gold leaf laborer, she was found to have a narrowing of right coronary artery and a stent was placed. Postoperatively she did well. It was felt that she could go home on the and she will be seen in the office in several days. She will be sent home on atorvastatin 40 mg, which she has not been able to take before. Critical problem with this patient will be controlling her hyperlipidemia. PCSK9 inhibitors were discussed and this may be an option eventually. FINAL DIAGNOSES: 1. Acute myocardial infarction. 2. Coronary artery disease. 3. Hypertension. 4. Hyperlipidemia. OPERATIONS: Cardiac cath and stent placement. CONSULTATIONS: Cardiology. She is improved MMODL / IJN: [id number] /
== END 2017-04-22 13:08 | disposition home or self-care (01) | DRG 247 ==
LOC: EC 00:02 → 3OBS 03:47 → 6SEL 09:37 → OBSVTOIN 04-20 14:30
PROVIDERS: ADMIT Family Medicine; ATTEND Family Medicine
PROC: B2111ZZ Fluoroscopy of Multiple Coronary Arteries using Low Osmolar Contrast (ICD-10-PCS; 2017-04-21)
PROC: 027034Z Dilation of Coronary Artery, One Artery with Drug-eluting Intraluminal Device, Percutaneous Approach (ICD-10-PCS; principal; 2017-04-21 10:30)
PROC: 4A023N7 Measurement of Cardiac Sampling and Pressure, Left Heart, Percutaneous Approach (ICD-10-PCS; 2017-04-21 10:30)
DX: I21.4 Non-ST elevation (NSTEMI) myocardial infarction (principal); E78.01 Familial hypercholesterolemia; E78.5 Hyperlipidemia, unspecified; I10 Essential (primary) hypertension; I25.10 Atherosclerotic heart disease of native coronary artery without angina pectoris; R94.6 Abnormal results of thyroid function studies; Z79.82 Long term (current) use of aspirin; Z87.891 Personal history of nicotine dependence; Z88.0 Allergy status to penicillin
CPT/HCPCS: 36415; 71275; 80048; 80053; 80061; 82533; 82550; 82553; 82565; 83690; 83735; 83880; 84439; 84443; 84484; 85025; 85049; 85610; 85730; 93005; 93458; 96361; 96365; 96366; 96376; 99291

== ENCOUNTER → 2017-12-03 | Outpatient (CLI) | payer MEDICARE, OTHER ==
[2017-12-03 10:09] LABS: Basophils % (A) 1 %; Eosinophils # (A) 0.2 k/uL (0-0.7); Eosinophils % (A) 3 %; HCT 41.8 % (34.0-46.0); HGB 13.9 gm/dL (11.4-16.0); Lymphocytes % (A) 18 %; MCH 29.4 pg (25.0-35.0); MCHC 33.2 g/dL (31.0-37.0); MCV 88.4 fL (80.0-100.0); Mean Platelet Volume 6.9; Monocytes # (A) 0.4 k/uL (0-1.0); Monocytes % (A) 7 %; Neutrophils # (A) 3.9 k/uL (1.3-7.7); Neutrophils % (A) 69 %; Platelet Count 215 k/uL (150-450); RBC 4.73 m/uL (3.80-5.40); RDW 13.9 % (11.5-15.5); WBC 5.7 k/uL (3.8-10.6)
[2017-12-03 15:50] LABS: Albumin 4.3 g/dL (3.80-4.90); Albumin/Globulin Ratio 2.26 (1.20-2.10); Anion Gap 5.5 mmol/L (4.00-12.00); Carbon Dioxide 27.5 mmol/L (21.6-31.8); Globulin 1.9 g/dL (2.1-3.7); Potassium 4.4 mmol/L (3.5-5.5); Total Bilirubin 0.8 mg/dL (0.2-1.2); Total Protein 6.2 g/dL (6.2-8.2)
[2017-12-03 15:56] LABS: T4, Free (Free Thyroxine) 1.2 ng/dL (0.80-1.80)
== END ==
LOC: LABWHC1 09:12
PROVIDERS: ATTEND Family Medicine
DX: E78.5 Hyperlipidemia, unspecified (principal); E55.9 Vitamin D deficiency, unspecified; R53.83 Other fatigue
CPT/HCPCS: 36415; 80053; 80061; 82306; 84439; 84443; 85025

== ENCOUNTER → 2018-01-21 | Outpatient (CLI) | payer OTHER ==
--- NOTE | 2018-01-22 15:08 | MM ---
Reason for exam: screening (asymptomatic). Last mammogram was performed 1 year and 1 month ago. History: Patient is postmenopausal. Family history of breast cancer in paternal aunt at age 20. Took hormonal contraceptives for 2 years beginning at age 26. Physical Findings: A clinical breast exam by your physician is recommended on an annual basis and results should be correlated with mammographic findings. MG Screening Mammo w CAD Bilateral CC and MLO view(s) were taken. Prior study comparison: January 05, 2017, bilateral MG screening mammo w CAD. December 05, 2015, bilateral MG screening mammo w CAD. The breast tissue is heterogeneously dense. This may lower the sensitivity of mammography. No significant changes when compared with prior studies. ASSESSMENT: Benign, BI-RAD 2 RECOMMENDATION: Routine screening mammogram of both breasts in 1 year.
== END | disposition home or self-care (01) ==
LOC: RADMAMWWP 09:08
PROVIDERS: ATTEND Family Medicine
DX: Z12.31 Encounter for screening mammogram for malignant neoplasm of breast (principal)
CPT/HCPCS: 77067

== ENCOUNTER → 2018-03-15 | Outpatient (CLI) | payer OTHER ==
--- NOTE | 2018-03-15 15:17 | US ---
EXAMINATION TYPE: US venous doppler duplex LE BI LOWER EXTREMITY VENOUS INSUFFICIENCY SIDE PERFORMED: bilateral 1) Color flow is present and patency is documented in the following vessels. No DVT or SVT is noted . EIV Common Femoral Vein Deep Femoral Vein Femoral Vein Popliteal Vein Proximal Calf Veins Greater Saph Vein Upper Small Saph Vein 2) There is venous reflux noted at the following venous levels: reflux in right mid popliteal 3) Incompetent perforators are noted at these levels: none As above, no ultrasound evidence for acute deep or superficial venous thrombosis bilaterally. IMPRESSION: As above.
== END | disposition home or self-care (01) ==
LOC: RADUSWWP 13:27
PROVIDERS: ATTEND Family Medicine
DX: M79.604 Pain in right leg (principal)
CPT/HCPCS: 93923; 93970

== ENCOUNTER → 2019-03-09 | Outpatient (CLI) | payer OTHER ==
--- NOTE | 2019-03-10 11:36 | MM ---
Reason for exam: screening (asymptomatic). Last mammogram was performed 1 year and 2 months ago. History: Patient is postmenopausal. Family history of breast cancer in paternal aunt at age 20. Took hormonal contraceptives for 2 years beginning at age 26. Physical Findings: A clinical breast exam by your physician is recommended on an annual basis and results should be correlated with mammographic findings. MG Screening Mammo w CAD Bilateral CC and MLO view(s) were taken. Prior study comparison: January 21, 2018, bilateral MG screening mammo w CAD. January 05, 2017, bilateral MG screening mammo w CAD. The breast tissue is heterogeneously dense. This may lower the sensitivity of mammography. There are benign appearing round linear calcifications bilaterally. There is chronic nodularity in the left breast. There is no discrete abnormality. Asymmetric breast tissue left anterior medial, stable and right upper, stable. ASSESSMENT: Benign, BI-RAD 2 RECOMMENDATION: Routine screening mammogram of both breasts in 1 year.
== END | disposition home or self-care (01) ==
LOC: RADMAMWWP 14:46
PROVIDERS: ATTEND Family Medicine
DX: Z12.31 Encounter for screening mammogram for malignant neoplasm of breast (principal)
CPT/HCPCS: 77067

== ENCOUNTER 2020-10-08 18:48 | Emergency (ER) | payer MEDICARE, OTHER ==
[2020-10-08 19:21] VITALS: BP 125/70; PULSE 84; RESP 18; TEMP 98
[2020-10-08] MEDS ORDERED: RABIES VACCINE (PCEC) 2.5 UNIT KIT IM ONE (19:56)
[2020-10-08] MEDS ORDERED: RABIES IMMUNE GLOB 300 UNIT/ML 1 ML VIAL IM ONE (19:56)
[2020-10-08] MEDS ORDERED: AMOXIC-POT CLAV 875-125MG 1 EACH TAB PO STA (19:57)
[2020-10-08] MEDS ORDERED: DIPH,PERTUS(ACELL)TETVAC-LF 0.5 ML VIAL IM ONE (19:57)
[2020-10-08] MEDS ORDERED: RABIES IMMUNE GLOB 300 UNIT/ML 5 ML VIAL IM ONE (20:15)
--- NOTE | 2020-10-08 21:13 | ED ---
Animal Bite HPI - General Chief Complaint: Animal Bite Stated Complaint: dog bite Time Seen by Provider: 10/08/20 19:46 Source: patient Mode of arrival: ambulatory Limitations: no limitations - History of Present Illness Initial Comments: 75-year-old female presents to emergency department with a chief complaint of a dog bite. This occurred about one hour prior to arrival. States the bite is on the left thigh.. She states the pain is 5/10 and exacerbated with palpation to the region. Denies significant discharge from region. Tetanus is not up-to- date. The dog's vaccinations are not up-to-date. - Related Data Home Medications Medication Instructions Recorded Confirmed Aspirin [Adult Low Dose Aspirin EC] 81 mg PO W/SUPPER 04/19/17 04/19/17 Cholecalciferol (Vitamin D3) 2,000 unit PO W/SUPPER 04/19/17 04/19/17 [Vitamin D3] Cyanocobalamin (Vitamin B-12) 1,000 mcg PO W/SUPPER 04/19/17 04/19/17 [Vitamin B-12] Ubidecarenone [Co Q-10] 100 mg PO W/SUPPER 04/19/17 04/19/17 Previous Rx's Medication Instructions Recorded Atorvastatin [Lipitor] 80 mg PO DAILY #90 tab 04/22/17 Clopidogrel Bisulfate [Plavix] 75 mg PO DAILY #90 tab 04/22/17 Clopidogrel [Plavix] 75 mg PO DAILY #90 tab 04/22/17 Losartan [Cozaar] 100 mg PO DAILY #90 tab 04/22/17 Nitroglycerin Sl Tabs [Nitrostat] 0.4 mg SUBLINGUAL Q5M PRN #20 tab 04/22/17 carvediloL [Coreg] 3.125 mg PO BID #180 tablet 04/22/17 Amoxicillin/Potassium Clav 1 tab PO Q12HR #20 tab 10/08/20 [Augmentin 875-125 Tablet] Allergies Allergy/AdvReac Type Severity Reaction Status Date / Time amoxicillin Allergy Rash/Hives Verified 10/08/20 19:21 Review of Systems ROS Statement: Those systems with pertinent positive or pertinent negative responses have been documented in the HPI. ROS Other: All systems not noted in ROS Statement are negative. Past Medical History Past Medical History: Myocardial Infarction (HI) History of Any Multi-Drug Resistant Organisms: None Reported Past Surgical History: Heart Catheterization With Stent Past Psychological History: No Psychological Hx Reported Smoking Status: Former smoker Past Alcohol Use History: None Reported Past Drug Use History: None Reported - Past Family History Mother Family Medical History: Hypertension, Renal Disease Father Family Medical History: No Reported History General Exam Limitations: no limitations General appearance: alert, in no apparent distress Head exam: Present: atraumatic, normocephalic, normal inspection Eye exam: Present: normal appearance, PERRL, EOMI Pupils: Present: normal accommodation ENT exam: Present: normal exam, normal oropharynx, mucous membranes moist Neck exam: Present: normal inspection, full ROM. Absent: lymphadenopathy Respiratory exam: Present: normal lung sounds bilaterally. Absent: respiratory distress Cardiovascular Exam: Present: regular rate, normal rhythm, normal heart sounds. Absent: systolic murmur Extremities exam: Present: normal inspection (Animal bite sri on the left thigh. Superficial.), full ROM, tenderness (Tenderness at the bite site. No active bleeding.), normal capillary refill. Absent: pedal edema, joint swelling, calf tenderness Back exam: Present: normal inspection, full ROM. Absent: tenderness Neurological exam: Present: alert, oriented X3 Psychiatric exam: Present: normal affect, normal mood Skin exam: Present: warm, dry, intact, normal color Course Vital Signs 10/08/20 19:17 Temperature 98.0 F Pulse Rate 84 Respiratory 18 Rate Blood Pressure 125/70 O2 Sat by Pulse 98 Oximetry Medical Decision Making - Medical Decision Making 75-year-old female presents to the emergency department with a chief complaint of a dog bite. Tetanus was updated. She did report an ALLERGY to amoxicillin but believes to have taken Augmentin before. She was admitted before and was observed with no ALLERGIC reactions. Patient was also given a rabies immunoglobulin. Rabies vaccine series was initiated. She was given a prescription to finish the series of vaccines. Return parameters were thoroughly discussed the patient is an attending agreeable. Disposition Clinical Impression: Dog bite, Bite by animal Disposition: HOME SELF-CARE Condition: Stable Instructions (If sedation given, give patient instructions): Animal Bite (ED) Additional Instructions: Please return to the Emergency Department if symptoms worsen or any other concerns. Prescriptions: Amoxicillin/Potassium Clav [Augmentin 875-125 Tablet] 1 tab PO Q12HR #20 tab Is patient prescribed a controlled substance at d/c from ED?: No Referrals: Efrain Gan MD [Primary Care Provider] - 1-2 days Time of Disposition: 19:17
== END 2020-10-08 21:46 | disposition home or self-care (01) ==
LOC: EC 18:48
DX: S71.152A Open bite, left thigh, initial encounter (principal); I25.2 Old myocardial infarction; Z23 Encounter for immunization; Z79.82 Long term (current) use of aspirin; Z88.1 Allergy status to other antibiotic agents; Z87.891 Personal history of nicotine dependence; W54.0XXA Bitten by dog, initial encounter
CPT/HCPCS: 90375; 90471; 90472; 90675; 90715; 96372; 99283

== ENCOUNTER → 2021-07-11 | Outpatient (CLI) | payer MEDICARE ==
--- NOTE | 2021-07-17 08:02 | MM ---
Reason for Exam: Screening (asymptomatic). Last mammogram was performed 1 year(s) and 4 month(s) ago. Patient History: Menarche at age 12. First Full-Term at age 25. Postmenopausal. Patient has history of breast feeding. Hormonal Contraceptives for 2 years from age 26 until age 28. Paternal aunt had breast cancer at or over age 50. Risk Values: Kristel 5 year model risk: 2.0%. NCI Lifetime model risk: 4.2%. Prior Study Comparison: 01/05/2017 Bilateral Screening Mammogram, [facility]. 01/21/2018 Bilateral Screening Mammogram, [facility]. 03/09/2019 Bilateral Screening Mammogram, [facility]. Tissue Density: The breast tissue is heterogeneously dense. This may lower the sensitivity of mammography. Findings: Analyzed By CAD. There is no suspicious group of microcalcifications or new suspicious mass in either breast. Stable bilateral secretory type calcifications. Overall Assessment: Benign, BI-RAD 2 Management: Screening Mammogram of both breasts in 1 year. A clinical breast exam by your physician is recommended on an annual basis and results should be correlated with mammographic findings. Electronically signed and approved by: Ang South M.D. Radiologis
== END | disposition home or self-care (01) ==
LOC: RADMAMWWP 11:15
PROVIDERS: ATTEND Family Medicine
DX: Z12.31 Encounter for screening mammogram for malignant neoplasm of breast (principal); Z78.0 Asymptomatic menopausal state; Z80.3 Family history of malignant neoplasm of breast
CPT/HCPCS: 77063; 77067

== ENCOUNTER → 2022-07-31 | Outpatient (CLI) | payer MEDICARE ==
--- NOTE | 2022-07-31 14:35 | XR ---
EXAMINATION TYPE: XR cervical spine comp DATE OF EXAM: 07/31/2022 COMPARISON: None HISTORY: 76-year-old female R52, pain TECHNIQUE: 5 views FINDINGS: Hypertrophic uncovertebral joint arthropathy mid to lower cervical spine. Moderate disc/endplate dege nerative change C4-C7 levels. Degenerative trace grade 1 retrolisthesis C5-C6. Remaining alignment is maintained. Normal odontoid view. On the right, variable mild bony neural foraminal narrowing mid an d lower cervical spine. On the left, more moderate bony neuroforaminal narrowing C5-C6 and C6-C7. 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 Degenerative grade 1 retrolisthesis C5-C6. M oderate bony neuroforaminal narrowing on the left at C5-C6 and C6-C7.
== END | disposition home or self-care (01) ==
LOC: RADXRMAIN 08:16
PROVIDERS: ATTEND Psychiatry & Neurology Neurology
DX: M47.812 Spondylosis without myelopathy or radiculopathy, cervical region (principal); M43.12 Spondylolisthesis, cervical region; M48.02 Spinal stenosis, cervical region
CPT/HCPCS: 72050

== ENCOUNTER 2022-10-31 01:00 | Observation (INO) | payer MEDICARE ==
[2022-10-31] MEDS ORDERED: KETOROLAC 15 MG/ML 1 ML VIAL IVP STA (02:10)
[2022-10-31] MEDS ORDERED: SODIUM CHLORIDE 0.9% 1,000 ML IV STA (02:10)
[2022-10-31] MEDS ORDERED: ONDANSETRON 4 MG/2 ML VIAL IVP STA (02:10)
[2022-10-31 02:41] LABS: RBC,Urine >182 /hpf (0-5); WBC,Urine >182 /hpf (0-5)
[2022-10-31 02:43] LABS: Color,Urine Dark Red
[2022-10-31 03:07] LABS: Appearance,Urine Bloody (Clear)
[2022-10-31 03:25] LABS: Basophils # (A) 0.1 k/uL (0-0.2); Basophils % (A) 0 %; Eosinophils # (A) 0.3 k/uL (0-0.7); Eosinophils % (A) 2 %; HCT 46.2 % (34.0-46.0); HGB 15.3 gm/dL (11.4-16.0); Lymphocytes # (A) 1.1 k/uL (1.0-4.8); Lymphocytes % (A) 7 %; MCH 29.8 pg (25.0-35.0); MCHC 33.2 g/dL (31.0-37.0); MCV 89.9 fL (80.0-100.0); Mean Platelet Volume 8.9; Monocytes # (A) 0.8 k/uL (0-1.0); Monocytes % (A) 5 %; Neutrophils # (A) 12.8 k/uL (1.3-7.7); Neutrophils % (A) 84 %; Platelet Count 220 k/uL (150-450); RBC 5.14 m/uL (3.80-5.40); RDW 13.3 % (11.5-15.5); WBC 15.2 k/uL (3.8-10.6)
[2022-10-31 03:29] LABS: ALT 28 U/L (4-34); AST 32 U/L (14-36); African American GFR (CKD) 74 (>60 ml/min/1.73 sqM); Albumin 4.5 g/dL (3.5-5.0); Alkaline Phosphatase 94 U/L (38-126); Amylase 81 U/L (30-110); Anion Gap 11 mmol/L; Blood Urea Nitrogen 25 mg/dL (7-17); Calcium 9.9 mg/dL (8.4-10.2); Carbon Dioxide 23 mmol/L (22-30); Chloride 102 mmol/L (98-107); Glucose 152 mg/dL (74-99); Lipase 61 U/L (23-300); Non-African American GFR(CKD) 64 (>60 ml/min/1.73 sqM); Potassium 4.4 mmol/L (3.5-5.1); Sodium 136 mmol/L (137-145); Total Bilirubin 1.2 mg/dL (0.2-1.3); Total Protein 7.6 g/dL (6.3-8.2)
[2022-10-31 03:37] LABS: INR 0.9 (<1.2); Partial Thromboplastin Time 23.9 sec (22.0-30.0); Prothrombin Time 9.8 sec (9.0-12.0)
[2022-10-31] MEDS ORDERED: KETOROLAC 15 MG/ML 1 ML VIAL IVP PRN (05:15)
[2022-10-31] MEDS ORDERED: ONDANSETRON 4 MG/2 ML VIAL IVP PRN (05:15)
[2022-10-31] MEDS ORDERED: MORPHINE SULFATE 4 MG/ML SYRINGE IV PRN (05:15)
[2022-10-31] MEDS ORDERED: NALOXONE 0.4 MG/ML 1 ML VIAL IV PRN (05:15)
--- NOTE | 2022-10-31 05:15 | ED ---
General Adult HPI - General Chief complaint: Abdominal Pain Stated complaint: Back pain Time Seen by Provider: 10/31/22 01:41 Source: patient, RN notes reviewed, old records reviewed Mode of arrival: ambulatory Limitations: no limitations - History of Present Illness Initial comments: Patient is a 77-year-old female who presents emergency Department complaining of left flank pain. Patient states she was sleeping when she awoke and began having left flank pain about 2 hours prior to arrival. Had some hematuria as well. Endorses mild nausea. No emesis. No diarrhea. No chest pain or shortness of breath or no fevers. Patient states she has remote history of kidney stones and believes that is what is currently happening. Presents for further evaluation at this time. - Related Data Home Medications Medication Instructions Recorded Confirmed Aspirin [Adult Low Dose Aspirin EC] 81 mg PO W/SUPPER 04/19/17 10/11/20 Cholecalciferol (Vitamin D3) 2,000 unit PO W/SUPPER 04/19/17 10/11/20 [Vitamin D3] Cyanocobalamin (Vitamin B-12) 1,000 mcg PO W/SUPPER 04/19/17 10/11/20 [Vitamin B-12] Ubidecarenone [Co Q-10] 100 mg PO W/SUPPER 04/19/17 10/11/20 Previous Rx's Medication Instructions Recorded Atorvastatin [Lipitor] 80 mg PO DAILY #90 tab 04/22/17 Losartan [Cozaar] 100 mg PO DAILY #90 tab 04/22/17 Nitroglycerin Sl Tabs [Nitrostat] 0.4 mg SUBLINGUAL Q5M PRN #20 tab 04/22/17 carvediloL [Coreg] 3.125 mg PO BID #180 tablet 04/22/17 Amoxicillin/Potassium Clav 1 tab PO Q12HR #20 tab 10/08/20 [Augmentin 875-125 Tablet] Allergies Allergy/AdvReac Type Severity Reaction Status Date / Time amoxicillin Allergy Rash/Hives Verified 10/31/22 01:05 Review of Systems ROS Statement: Those systems with pertinent positive or pertinent negative responses have been documented in the HPI. Review of Systems: CONST: Denies fever EYES: Denies blurry vision ENT: Denies nasal congestion C/V: Denies Chest pain RESP: Denies shortness of breath GI: Endorses left flank pain : Endorses hematuria SKIN: Denies rash. MSK: Denies joint pain. NEURO: Denies headache ROS Other: All systems not noted in ROS Statement are negative. Past Medical History Past Medical History: Myocardial Infarction ([place]) History of Any Multi-Drug Resistant Organisms: None Reported Past Surgical History: Heart Catheterization With Stent Past Psychological History: No Psychological Hx Reported Smoking Status: Never smoker - Past Family History Mother Family Medical History: Hypertension, Renal Disease Father Family Medical History: No Reported History General Exam - General Exam Comments Initial Comments: General: Appears to be mild to moderate distress secondary to abdominal pain. HEAD: Normal with no signs of head trauma. EYES: PERRLA, EOMI, conjunctiva normal, no discharge. ENT: Hearing grossly intact, normal oropharynx. RESPIRATORY: Clear breath sounds bilaterally. No wheezes, rales, or rhonchi. C/V: Regular rate and rhythm. S1 and S2 auscultated, peripheral pulses 2+ and intact throughout ABD: Abdomen is soft, nondistended. Tender to palpation over the left flank. No CVA tenderness to palpation. No guarding. No rebound tenderness. EXT: Normal range of motion, no obvious deformity SKIN: No rashes or lesions observed on exposed skin. NEURO: Alert and oriented 4. Limitations: no limitations Course Vital Signs 10/31/22 10/31/22 01:01 03:04 Temperature 97.9 F Pulse Rate 89 83 Respiratory 20 18 Rate Blood Pressure 187/113 157/71 O2 Sat by Pulse 97 95 Oximetry Medical Decision Making - Medical Decision Making Was pt. sent in by a medical professional or institution (, PA, MESH MAN, urgent care, hospital, or retirement...) When possible be specific @ -No Did you speak to anyone other than the patient for history (EMS, parent, family, police, friend...)? What history was obtained from this source @ -No Did you review nursing and triage notes (agree or disagree)? Why? @ -I reviewed and agree with nursing and triage notes Were old charts reviewed (outside hosp., previous admission, EMS record, old EKG, old radiological studies, urgent care reports/EKG's, retirement records)? Report findings @ -Old charts reviewed Differential Diagnosis (chest pain, altered mental status, abdominal pain women, abdominal pain men, vaginal bleeding, weakness, fever, dyspnea, syncope, headache, dizziness, GI bleed, back pain, seizure, CVA, palpatations, mental health, musculoskeletal)? @ -Differential Abdominal Pain Women: Appendicitis, Cholecystitis, diverticulosis, ischemic bowel, pancreatitis, hepatitis, UTI, gastroenteritis, AAA, incarcerated hernia, bowel obstruction, constipation, inflammatory bowel, hepatitis, peptic ulcer disease, splenic infarction, perforated viscus, vulvitis, ovarian torsion, PID, kidney stone, placenta abruption, this is not meant to be an all-inclusive list EKG interpreted by me (3pts min.). @ -None done X-rays interpreted by me (1pt min.). @ -None done CT interpreted by me (1pt min.). @ -CT abdomen and pelvis reveals a large left ureteral lithiasis measuring approximate 7 x 12 mm with severe hydronephrosis. U/S interpreted by me (1pt. min.). @ -None done What testing was considered but not performed or refused? (CT, X-rays, U/S, labs)? Why? @ -None What meds were considered but not given or refused? Why? @ -None Did you discuss the management of the patient with other professionals (augustine worley i.e. , PA, MESH MAN, lab, RT, psych nurse, executive secretary social welfare, container maker, teacher, credit officer, case supervisor)? Give summary @ -Discussed with Dr. Mendoza who was in agreement with admission. Recommended antibiotics and nothing by mouth for possible ureteral stenting. Discussed with Dr. burks who is covering for Dr. Gan who accepted the admission. Was smoking cessation discussed for >3mins.? @ -No Was critical care preformed (if so, how long)? @ -No Were there social determinants of health that impacted care today? How? (Homelessness, low income, unemployed, alcoholism, drug addiction, transportation, low edu. Level, literacy, decrease access to med. care, shelter, rehab)? @ -No Was there de-escalation of care discussed even if they declined (Discuss DNR or withdrawal of care, Hospice)? DNR status @ -No What co-morbidities impacted this encounter? (DM, HTN, Smoking, COPD, CAD, Cancer, CVA, ARF, Chemo, Hep., AIDS, mental health diagnosis, sleep apnea, morbid obesity)? @ -None Was patient admitted / discharged? Hospital course, mention meds given and route, prescriptions, significant lab abnormalities, going to OR and other pertinent info. @ -Based on the patient's presentation and physical exam, I do believe she is experiencing a kidney stone but cannot rule out other etiology at this time. We will obtain abdominal labs as well as CT. She was in agreement with plan. She'll be symptomatically treated with IV Zofran, Toradol, fluids. Vital signs within acceptable limits. Patient's labs remarkable for leukocytosis of 15.2. Urinalysis shows significant hematuria as well as numerous WBCs over 182. CT imaging revealed a large left ureterolithiasis with severe hydronephrosis. I discussed with the patient and I am concerned for infected left ureteral lithiasis that may require stenting. I would like to admit the patient. She was in agreement this plan. Blood cultures were ordered. Patient started on IV Levaquin. Patient was in agreement with this plan. I spoke with the urologist Dr. Calvert who was in agreement with the plan as well as the admitting team, Dr. burks who is covering for Dr. Gan who was in agr eement with the admission. Undiagnosed new problem with uncertain prognosis? @ -No Drug Therapy requiring intensive monitoring for toxicity (Heparin, Nitro, Insulin, Cardizem)? @ -No Were any procedures done? @ -No Diagnosis/symptom? @ -Infected left ureterolithiasis with moderate to severe hydronephrosis Acute, or Chronic, or Acute on Chronic? @ -Acute Uncomplicated (without systemic symptoms) or Complicated (systemic symptoms)? @ -Complicated Side effects of treatment? @ -No Exacerbation, Progression, or Severe Exacerbation? @ -No Poses a threat to life or bodily function? How? (Chest pain, [place], [place], pneumonia, PE, COPD, DKA, ARF, appy, cholecystitis, CVA, Diverticulitis, Homicidal, Suicidal, threat to staff... and all critical care pts) @ -Yes - Lab Data Result diagrams: 10/31/22 02:40 10/31/22 02:40 Lab Results 10/31/22 10/31/22 10/31/22 Range/Units 01:00 02:40 02:40 WBC 15.2 H (3.8-10.6) k/uL RBC 5.14 (3.80-5.40) m/uL Hgb 15.3 (11.4-16.0) gm/dL Hct 46.2 H (34.0-46.0) % MCV 89.9 (80.0-100.0) fL MCH 29.8 (25.0-35.0) pg MCHC 33.2 (31.0-37.0) g/dL RDW 13.3 (11.5-15.5) % Plt Count 220 (150-450) k/uL MPV 8.9 Neutrophils % 84 % Lymphocytes % 7 % Monocytes % 5 % Eosinophils % 2 % Basophils % 0 % Neutrophils # 12.8 H (1.3-7.7) k/uL Lymphocytes # 1.1 (1.0-4.8) k/uL Monocytes # 0.8 (0-1.0) k/uL Eosinophils # 0.3 (0-0.7) k/uL Basophils # 0.1 (0-0.2) k/uL PT 9.8 (9.0-12.0) sec INR 0.9 (<1.2) APTT 23.9 (22.0-30.0) sec Sodium (137-145) mmol/L Potassium (3.5-5.1) mmol/L Chloride (98-107) mmol/L Carbon Dioxide (22-30) mmol/L Anion Gap mmol/L BUN (7-17) mg/dL Creatinine (0.52-1.04) mg/dL Est GFR (CKD-EPI)AfAm (>60 ml/min/1.73 sqM) Est GFR (CKD-EPI)NonAf (>60 ml/min/1.73 sqM) Glucose (74-99) mg/dL Calcium (8.4-10.2) mg/dL Total Bilirubin (0.2-1.3) mg/dL AST (14-36) U/L ALT (4-34) U/L Alkaline Phosphatase (38-126) U/L Total Protein (6.3-8.2) g/dL Albumin (3.5-5.0) g/dL Amylase (30-110) U/L Lipase (23-300) U/L Urine Color Dark Red Urine Appearance Bloody H (Clear) Urine RBC >182 H (0-5) /hpf Urine WBC >182 H (0-5) /hpf 10/31/22 Range/Units 02:40 WBC (3.8-10.6) k/uL RBC (3.80-5.40) m/uL Hgb (11.4-16.0) gm/dL Hct (34.0-46.0) % MCV (80.0-100.0) fL MCH (25.0-35.0) pg MCHC (31.0-37.0) g/dL RDW (11.5-15.5) % Plt Count (150-450) k/uL MPV Neutrophils % % Lymphocytes % % Monocytes % % Eosinophils % % Basophils % % Neutrophils # (1.3-7.7) k/uL Lymphocytes # (1.0-4.8) k/uL Monocytes # (0-1.0) k/uL Eosinophils # (0-0.7) k/uL Basophils # (0-0.2) k/uL PT (9.0-12.0) sec INR (<1.2) APTT (22.0-30.0) sec Sodium 136 L (137-145) mmol/L Potassium 4.4 (3.5-5.1) mmol/L Chloride 102 (98-107) mmol/L Carbon Dioxide 23 (22-30) mmol/L Anion Gap 11 mmol/L BUN 25 H (7-17) mg/dL Creatinine 0.88 (0.52-1.04) mg/dL Est GFR (CKD-EPI)AfAm 74 (>60 ml/min/1.73 sqM) Est GFR (CKD-EPI)NonAf 64 (>60 ml/min/1.73 sqM) Glucose 152 H (74-99) mg/dL Calcium 9.9 (8.4-10.2) mg/dL Total Bilirubin 1.2 (0.2-1.3) mg/dL AST 32 (14-36) U/L ALT 28 (4-34) U/L Alkaline Phosphatase 94 (38-126) U/L Total Protein 7.6 (6.3-8.2) g/dL Albumin 4.5 (3.5-5.0) g/dL Amylase 81 (30-110) U/L Lipase 61 (23-300) U/L Urine Color Urine Appearance (Clear) Urine RBC (0-5) /hpf Urine WBC (0-5) /hpf Disposition Clinical Impression: Ureterolithiasis, UTI (urinary tract infection), Hydronephrosis Disposition: ADMITTED IP TO THIS HOSP Condition: Stable Time of Disposition: 05:06
[2022-10-31] MEDS ORDERED: LEVOFLOXACIN 500MG-D5W PMX 500 MG in DEXTROSE/WATER 1 100ML.BAG IVPB STA (05:21)
[2022-10-31] MEDS: SODIUM CHLORIDE 0.9% 1,000 ML IV SCH ×2 (06:11→18:53)
--- NOTE | 2022-10-31 06:32 | CT ---
EXAM: CT Abdomen and Pelvis Without Intravenous Contrast CLINICAL HISTORY: ITS.REASON CT Reason: abdominal pain, left flank hematuria TECHNIQUE: Axial computed tomography images of the abdomen and pelvis without intravenous contrast. CTDI is 10.5 mGy and DLP is 566.8 mGy-cm. This CT exam was performed using one or more of the following dose reduction techniques: automated exposure control, adjustment of the mA and/or kV according to patient size, and/or use of iterative reconstruction technique. COMPARISON: No relevant prior studies available. FINDINGS: Limitations: Absent contrast limit evaluation. Lung bases: Unremarkable. No mass. No consolidation. Mediastinum: Small hiatal hernia. ABDOMEN: Liver: Unremarkable. Gallbladder and bile ducts: Unremarkable. No calcified stones. No ductal dilation. Pancreas: Unremarkable. No ductal dilation. Spleen: Unremarkable. No splenomegaly. Adrenals: Unremarkable. No mass. Kidneys and ureters: 7 x 8 x 12 mm calculus in the mid to distal left ureter at the level of the iliac crest. Moderate to severe left hydronephrosis and ureteral dilatation. Duplicated renal collecting system are suspected with dilatation in the left upper pole collecting system. Calcifications in the mid to lower left kidney. Large calcification towards the lower left kidney may be parenchymal calcification. Stomach and bowel: Diverticulosis. No CT evidence for acute diverticulitis. Moderate retained stool in the large bowel. PELVIS: Appendix: No findings to suggest acute appendicitis. Bladder: Thickening of the bladder wall likely due to underdistention. No stones. Reproductive: Unremarkable as visualized. ABDOMEN and PELVIS: Intraperitoneal space: Unremarkable. No free air. No significant fluid collection. Bones/joints: Degenerative changes in the lower lumbar spine. Mild retrolisthesis at L4-5. No acute fracture. No dislocation. Soft tissues: Unremarkable. Vasculature: Calcified atherosclerotic abdominal aorta. No abdominal aortic aneurysm. Lymph nodes: Unremarkable. No enlarged lymph nodes. IMPRESSION: 1. Large calculus in the mid to distal left ureter and moderate to severe hydronephrosis in the left upper pole collecting system. 2. Duplicated collecting system in the kidneys bilaterally. 3. Left renal calculus. 4. Diverticulosis. No CT evidence for acute diverticulitis
--- NOTE | 2022-10-31 08:44 | P.GSCN ---
History of Present Illness Consult date: 10/31/22 History of present illness: 77 yo female came to the er with abdominal and back pain. SHe has bloody urine. A ct scan identified left hydronephrosis due to a large[12x6mm] left mid ureteral stone. H er urine looks infected. Her wbc is 15 k. She may have had a stone 30 years ago. SHe is afebrile Her pain is under control at present Review of Systems All systems: negative - Constitutional Denies fever, Denies weight loss - EENT Eyes: denies blurred vision Ears, nose, mouth and throat: Denies dysphagia - Cardiovascular Denies chest pain, Denies shortness of breath - Respiratory Denies cough, Denies 7 - Gastrointestinal Reports as per HPI - Genitourinary Genitourinary: Denies dysuria, Denies hematuria - Integumentary Denies rash, Denies unusual bruising - Neurological Denies headaches, Denies syncope - Hematologic/Lymphatic Denies easy bleeding, Denies easy bruising Past Medical History Past Medical History: Myocardial Infarction ([place]) History of Any Multi-Drug Resistant Organisms: None Reported Past Surgical History: Heart Catheterization With Stent Past Psychological History: No Psychological Hx Reported Smoking Status: Never smoker - Past Family History Mother Family Medical History: Hypertension, Renal Disease Father Family Medical History: No Reported History Medications and Allergies Home Medications Medication Instructions Recorded Confirmed Type Aspirin [Adult Low Dose Aspirin EC] 81 mg PO W/SUPPER 04/19/17 10/31/22 History Ubidecarenone [Co Q-10] 100 mg PO W/SUPPER 04/19/17 10/31/22 History Nitroglycerin Sl Tabs [Nitrostat] 0.4 mg SUBLINGUAL Q5M PRN #20 tab 04/22/17 10/31/22 Rx carvediloL [Coreg] 3.125 mg PO BID #180 tablet 04/22/17 10/31/22 Rx Atorvastatin Calcium [Lipitor] 40 mg PO HS 10/31/22 10/31/22 History Baclofen [Lioresal] 5 mg PO BID PRN 10/31/22 10/31/22 History Cyanocobalamin [Vitamin B-12] 500 mcg PO W/SUPPER 10/31/22 10/31/22 History [place]-3 Fatty Acids [[place]-3] 1,000 mg PO W/SUPPER 10/31/22 10/31/22 History Allergies Allergy/AdvReac Type Severity Reaction Status Date / Time amoxicillin Allergy Rash/Hives Verified 10/31/22 08:23 Surgical - Exam Vital Signs Temp Pulse Resp BP Pulse Ox 97.9 F 89 20 187/113 97 10/31/22 01:01 10/31/22 01:01 10/31/22 01:01 10/31/22 01:01 10/31/22 01:01 - General well developed, well nourished, no distress - Eyes normal ocular movement, no icteric - ENT no hearing loss, no congestion - Neck no masses, trachea midline - Respiratory normal respiratory effort, clear to auscultation - Abdomen Abdomen: soft, non tender, no guarding, no rigid, no rebound - Integumentary no rash, no abnormal pigmentation - Neurologic no disoriented, no combative - Psychiatric oriented to time, oriented to person, oriented to place, speech is normal, memory intact Results - Labs 10/31/22 02:40 10/31/22 02:40 Abnormal Lab Results - Last 24 Hours (Table) 10/31/22 10/31/22 10/31/22 Range/Units 01:00 02:40 02:40 WBC 15.2 H (3.8-10.6) k/uL Hct 46.2 H (34.0-46.0) % Neutrophils # 12.8 H (1.3-7.7) k/uL Sodium 136 L (137-145) mmol/L BUN 25 H (7-17) mg/dL Glucose 152 H (74-99) mg/dL Urine Appearance Bloody H (Clear) Urine RBC >182 H (0-5) /hpf Urine WBC >182 H (0-5) /hpf Diabetes panel 10/31/22 Range/Units 02:40 Sodium 136 L (137-145) mmol/L Potassium 4.4 (3.5-5.1) mmol/L Chloride 102 (98-107) mmol/L Carbon Dioxide 23 (22-30) mmol/L BUN 25 H (7-17) mg/dL Creatinine 0.88 (0.52-1.04) mg/dL Glucose 152 H (74-99) mg/dL Calcium 9.9 (8.4-10.2) mg/dL AST 32 (14-36) U/L ALT 28 (4-34) U/L Alkaline Phosphatase 94 (38-126) U/L Total Protein 7.6 (6.3-8.2) g/dL Albumin 4.5 (3.5-5.0) g/dL Calcium panel 10/31/22 Range/Units 02:40 Calcium 9.9 (8.4-10.2) mg/dL Albumin 4.5 (3.5-5.0) g/dL Pituitary panel 10/31/22 Range/Units 02:40 Sodium 136 L (137-145) mmol/L Potassium 4.4 (3.5-5.1) mmol/L Chloride 102 (98-107) mmol/L Carbon Dioxide 23 (22-30) mmol/L BUN 25 H (7-17) mg/dL Creatinine 0.88 (0.52-1.04) mg/dL Glucose 152 H (74-99) mg/dL Calcium 9.9 (8.4-10.2) mg/dL Adrenal panel 10/31/22 Range/Units 02:40 Sodium 136 L (137-145) mmol/L Potassium 4.4 (3.5-5.1) mmol/L Chloride 102 (98-107) mmol/L Carbon Dioxide 23 (22-30) mmol/L BUN 25 H (7-17) mg/dL Creatinine 0.88 (0.52-1.04) mg/dL Glucose 152 H (74-99) mg/dL Calcium 9.9 (8.4-10.2) mg/dL Total Bilirubin 1.2 (0.2-1.3) mg/dL AST 32 (14-36) U/L ALT 28 (4-34) U/L Alkaline Phosphatase 94 (38-126) U/L Total Protein 7.6 (6.3-8.2) g/dL Albumin 4.5 (3.5-5.0) g/dL - Imaging CT scan - abdomen: report reviewed, image reviewed CT scan - pelvis: report reviewed, image reviewed Assessment and Plan Assessment: Impression: left ureteral calculus with obstruction and colic. Uti with possible sepsis[wbc 15k, infected looking urine] Plan: the patient will need a double j catheter lt. This has been discussed with the patient and her . She has been made npo
--- NOTE | 2022-10-31 10:16 | P.HPIM ---
History of Present Illness This is a pleasant 77 years old female with past medical history of coronary artery disease status post stenting, hypertension, hyperlipidemia Presents because of left flank pain and hematuria currently her pain is controlled. She denies dysuria but she had some red color urine, today's become encrusted color. No suprapubic tenderness. No other pulmonary or GI symptoms. Patient denies smoking alcohol or illicit drugs Vitas looks stable, blood pressure was elevated 187/113, currently 157/71 She has evidence of leukocytosis 15.2. Rest of CBC, INR, BMP and liver enzymes were unremarkable. 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 Left renal calculus. Diverticulosis Review of Systems Review of systems CONSTITUTIONAL: No fever, no malaise, no fatigue. HEENT: No recent visual problems or hearing problems. Denied any sore throat. CARDIOVASCULAR: No orthopnea, PND, no palpitations, no syncope. PULMONARY: No shortness of breath, no cough, no hemoptysis. GASTROINTESTINAL: No diarrhea, no nausea, no vomiting, no abdominal pain. Normoactive bowel sounds. NEUROLOGICAL: No headaches, no weakness, no numbness. HEMATOLOGICAL: Denies any bleeding or petechiae. GENITOURINARY: Denies any burning micturition, frequency, or urgency. MUSCULOSKELETAL/RHEUMATOLOGICAL: Denies any joint pain, swelling, or any muscle pain. ENDOCRINE: Denies any polyuria or polydipsia. Past Medical History Past Medical History: Myocardial Infarction ([place]) History of Any Multi-Drug Resistant Organisms: None Reported Past Surgical History: Heart Catheterization With Stent Past Psychological History: No Psychological Hx Reported Smoking Status: Never smoker - Past Family History Mother Family Medical History: Hypertension, Renal Disease Father Family Medical History: No Reported History Medications and Allergies Home Medications Medication Instructions Recorded Confirmed Type Aspirin [Adult Low Dose Aspirin EC] 81 mg PO W/SUPPER 04/19/17 10/31/22 History Ubidecarenone [Co Q-10] 100 mg PO W/SUPPER 04/19/17 10/31/22 History Nitroglycerin Sl Tabs [Nitrostat] 0.4 mg SUBLINGUAL Q5M PRN #20 tab 04/22/17 10/31/22 Rx carvediloL [Coreg] 3.125 mg PO BID #180 tablet 04/22/17 10/31/22 Rx Atorvastatin Calcium [Lipitor] 40 mg PO HS 10/31/22 10/31/22 History Baclofen [Lioresal] 5 mg PO BID PRN 10/31/22 10/31/22 History Cyanocobalamin [Vitamin B-12] 500 mcg PO W/SUPPER 10/31/22 10/31/22 History [place]-3 Fatty Acids [[place]-3] 1,000 mg PO W/SUPPER 10/31/22 10/31/22 History Allergies Allergy/AdvReac Type Severity Reaction Status Date / Time amoxicillin Allergy Rash/Hives Verified 10/31/22 08:23 Physical Exam Vitals: Vital Signs Temp Pulse Resp BP Pulse Ox 10/31/22 03:04 83 18 157/71 95 10/31/22 01:01 97.9 F 89 20 187/113 97 Intake and Output 10/30/22 10/31/22 10/31/22 22:59 06:59 14:59 Other: Voiding Method Toilet Weight 69.853 kg GENERAL: The patient is alert and oriented x3, not in any acute distress. Well developed, well nourished. HEENT: Pupils are round and equally reacting to light. EOMI. No scleral icterus. No conjunctival pallor. Normocephalic, atraumatic. No pharyngeal erythema. No thyromegaly. CARDIOVASCULAR: S1 and S2 present. No murmurs, rubs, or gallops. PULMONARY: Chest is clear to auscultation, no wheezing , no crackles. ABDOMEN: Soft, nontender, nondistended, normoactive bowel sounds. No palpable organomegaly. MUSCULOSKELETAL: No joint swelling or deformity. EXTREMITIES: No cyanosis, clubbing, or pedal edema. NEUROLOGICAL: Gross neurological examination did not reveal any focal deficits. SKIN: No rashes. no petechiae. Results CBC & Chem 7: 10/31/22 02:40 10/31/22 02:40 Labs: Abnormal Lab Results - Last 24 Hours (Table) 10/31/22 10/31/22 10/31/22 Range/Units 01:00 02:40 02:40 WBC 15.2 H (3.8-10.6) k/uL Hct 46.2 H (34.0-46.0) % Neutrophils # 12.8 H (1.3-7.7) k/uL Sodium 136 L (137-145) mmol/L BUN 25 H (7-17) mg/dL Glucose 152 H (74-99) mg/dL Urine Appearance Bloody H (Clear) Urine RBC >182 H (0-5) /hpf Urine WBC >182 H (0-5) /hpf Assessment and Plan Assessment: large calculus in the mid to distal left ureter , erate to severe hydronephrosis History of coronary artery disease status post stenting Hypertension Hyperlipidemia Diverticulosis Plan: Patient was started on Levaquin emergency room Urology consult for possible stent placement Follow-up urine culture Labs and medication were reviewed.. Continue same treatment. Continue with symptomatic treatment. Resume home medication. Monitor labs and vitals. DVT and GI prophylaxis. Further recommendations as per clinical course of the patient DVT prophylaxis: Subcutaneous heparin GI Prophylaxis: Pepcid PT/OT: Pending Prognosis is guarded
[2022-10-31] MEDS ORDERED: LACTATED RINGERS 1,000 ML IV ONE (14:41)
[2022-10-31] MEDS ORDERED: DEXAMETHASONE SOD PHOSPHATE 4 MG/ML 1 ML VIAL IVP ONE (14:49)
[2022-10-31] MEDS ORDERED: ONDANSETRON 4 MG/2 ML VIAL IVP ONE (14:50)
[2022-10-31] MEDS ORDERED: PROPOFOL 10 MG/ML 20 ML VIAL IV ONE (15:26)
[2022-10-31] MEDS ORDERED: fentaNYL (PF) 50 MCG/ML 2 ML AMP ONE (15:26)
[2022-10-31] MEDS ORDERED: LIDOCAINE 2% INJ 20 MG/ML (2 ML VIAL) ONE (15:26)
[2022-10-31] MEDS ORDERED: MIDAZOLAM 2 MG/2 ML VIAL ONE (15:26)
[2022-10-31] MEDS ORDERED: SUCCINYLCHOLINE CHLORIDE 200 MG/10 ML VIAL IV ONE (15:26)
--- NOTE | 2022-10-31 16:03 | P.OP ---
Date of Procedure: 10/31/22 Preoperative Diagnosis: Left ureteral calculus with obstruction, urinary tract infection Postoperative Diagnosis: Same Procedure(s) Performed: Cystoscopy with placement of double-J catheter left Anesthesia: [facility] Surgeon: Marvin Calvert Estimated Blood Loss (ml): 0 Pathology: none sent Indications for Procedure: Patient is 77. She presented to the emergency room with severe left flank pain. She is a 12 x 6 left midureteral stone and possibly a bifid collecting system. Her urine is infected microscopically. Her white count was 15,000. She comes for double-J catheter. Description of Procedure: Patient brought up and suite. Given general anesthesia. She's placed lithotomy position with sterile prep and drape. Cystoscopy Foroblique lens and 22-Tamazight sheath identifies a normal urethra. There is acute and chronic cystitis throughout the floor the bladder. Both ureteral orifices identified. An 035 wires passed through the left ureter up to the stone. The stone was quite impacted but I'm able to manipulate this wire by the left ureteral stone. Wire goes into the upper pole calyx. Over the wires and passed a 6 x 24 double-J catheter. The passage is quite slow due to the obstruction of the stone in the mid ureter. Then the procedure the bladder strain the patient is awakened and returned recovery room good condition. From urologic standpoint she can be discharged home in 24 hours and antibiotics and follow my office in one week.
[2022-10-31] MEDS ORDERED: ASPIRIN 81 MG PO SCH (17:30)
[2022-10-31] MEDS: carvediloL 3.125 MG TAB PO SCH (18:53)
[2022-10-31] MEDS ORDERED: ATORVASTATIN 40 MG TAB PO SCH (21:00)
[2022-11-01] MEDS: SODIUM CHLORIDE 0.9% 1,000 ML IV SCH ×2 (03:01→05:30)
[2022-11-01] MEDS ORDERED: LEVOFLOXACIN 500MG-D5W PMX 500 MG in DEXTROSE/WATER 1 100ML.BAG IVPB SCH (06:00)
[2022-11-01] MEDS: carvediloL 3.125 MG TAB PO SCH (06:47)
[2022-11-01 07:05] VITALS: BP 153/80; PULSE 77; RESP 19; TEMP 97.9
[2022-11-01 07:52] LABS: African American GFR (CKD) 88 (>60 ml/min/1.73 sqM); Anion Gap 10 mmol/L; Blood Urea Nitrogen 18 mg/dL (7-17); Calcium 8.8 mg/dL (8.4-10.2); Carbon Dioxide 21 mmol/L (22-30); Chloride 107 mmol/L (98-107); Glucose 162 mg/dL (74-99); Non-African American GFR(CKD) 76 (>60 ml/min/1.73 sqM); Potassium 4.1 mmol/L (3.5-5.1); Sodium 138 mmol/L (137-145)
[2022-11-01 08:05] LABS: Basophils % (A) 0 %; Eosinophils % (A) 0 %; HCT 37.8 % (34.0-46.0); HGB 12.7 gm/dL (11.4-16.0); Lymphocytes # (A) 0.6 k/uL (1.0-4.8); Lymphocytes % (A) 5 %; MCH 30.3 pg (25.0-35.0); MCHC 33.5 g/dL (31.0-37.0); MCV 90.2 fL (80.0-100.0); Mean Platelet Volume 8.6; Monocytes # (A) 0.5 k/uL (0-1.0); Monocytes % (A) 4 %; Neutrophils # (A) 11.3 k/uL (1.3-7.7); Neutrophils % (A) 90 %; Platelet Count 177 k/uL (150-450); RBC 4.19 m/uL (3.80-5.40); RDW 13.4 % (11.5-15.5); WBC 12.5 k/uL (3.8-10.6)
--- NOTE | 2022-11-01 08:40 | P.PN ---
Subjective Progress Note Date: 11/01/22 The patient was in the hospital yesterday with an obstructing left ureteral stone, UTI with sepsis. She underwent a stent placement yesterday. He feels good. She has not had any fever or chills. Her vital signs are stable. Her white count is down to 12,000. Objective - Vital Signs Vital signs: Vital Signs Temp 97.9 F 11/01/22 07:00 Pulse 77 11/01/22 07:00 Resp 19 11/01/22 07:00 BP 153/80 11/01/22 07:00 Pulse Ox 93 L 11/01/22 07:00 FiO2 Intake & Output 10/31/22 11/01/22 11/01/22 18:59 06:59 18:59 Intake Total 650 Output Total 0 Balance 650 Weight 69.853 kg Intake: IV 650 Output: Estimated Blood Loss 0 Other: Voiding Method Toilet Toilet # Voids 1 - Labs CBC & Chem 7: 11/01/22 07:04 11/01/22 07:04 Labs: Abnormal Lab Results - Last 24 Hours (Table) 11/01/22 11/01/22 Range/Units 07:04 07:04 WBC 12.5 H (3.8-10.6) k/uL Neutrophils # 11.3 H (1.3-7.7) k/uL Lymphocytes # 0.6 L (1.0-4.8) k/uL Carbon Dioxide 21 L (22-30) mmol/L BUN 18 H (7-17) mg/dL Glucose 162 H (74-99) mg/dL Assessment and Plan Assessment: Impression: Successful stent placement for obstructing ureteral calculus, urinary tract infection with sepsis on the left side. From a urologic standpoint the patient may be discharged home. She should go home on Levaquin 500 mg daily pending the urine culture. I will contact her next week to arrange for ureteroscopy and laser lithotripsy to the stone and removal of stent in the near future.
--- NOTE | 2022-11-01 08:59 | FL ---
Intraoperative/procedural fluoroscopic services were provided. Total fluoroscopy time is 27.6 seconds with a total of 3 submitted images to PACS. Please see the operative/procedural note for further det ails. DAP: 2.3604 Gycm2
--- NOTE | 2022-11-01 14:23 | P.DS ---
Providers Date of admission: 10/31/22 05:11 Expected date of discharge: 11/01/22 Attending physician: Efrain Gan Consults: 10/31/22 05:15 Consult Physician Routine Consulting Provider: Marvin Calvert Consult Reason/Comments: infected left ureterolithiasis, hydronephrosis Do you want consulting provider notified?: Already Contacted Primary care physician: Efrain Gan Hospital Course: 77 years old female with past medical history of coronary artery disease status post stenting, hypertension, hyperlipidemia Presents because of left flank pain and hematuria currently her pain is controlled. She denies dysuria but she had some red color urine, today's become encrusted color. No suprapubic tenderness. No other pulmonary or GI symptoms. Patient denies smoking alcohol or illicit drugs Vitas looks stable, blood pressure was elevated 187/113, currently 157/71 She has evidence of leukocytosis 15.2. Rest of CBC, INR, BMP and liver enzymes were unremarkable. 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 Left renal calculus. Diverticulosis 11/01 : Patient was seen and evaluated at bedside. Patient was seen by urology status post Cystoscopy with placement of double-J catheter left. Leukocytosis improving transition from IV Levaquin to oral Levaquin with outpatient follow-up with urology. Plan to discharge home with outpatient follow-up with urology Assessment: Assessment: large calculus in the mid to distal left ureter , moderate to severe hydronephrosis History of coronary artery disease status post stenting Hypertension Hyperlipidemia Diverticulosis Plan: Patient treated with IV Levaquin, transition to oral Levaquin. White cell count elevated trending down Urology consult for possible stent placement In regards to history of hypertension hyperlipidemia continue patient on Coreg. Continue patient on aspirin and Lipitor Patient Condition at Discharge: Fair Plan - Discharge Summary New Discharge Prescriptions: New traMADol HCl [Ultram] 50 mg PO Q6HR PRN 3 Days #12 tab PRN Reason: Pain Scale 7 To 10 Levofloxacin [Levaquin] 750 mg PO DAILY 7 Days #7 tab Continue Aspirin [Adult Low Dose Aspirin EC] 81 mg PO W/SUPPER Ubidecarenone [Co Q-10] 100 mg PO W/SUPPER carvediloL [Coreg] 3.125 mg PO BID #180 tablet Nitroglycerin Sl Tabs [Nitrostat] 0.4 mg SUBLINGUAL Q5M PRN #20 tab PRN Reason: Chest Pain Atorvastatin Calcium [Lipitor] 40 mg PO HS Cyanocobalamin [Vitamin B-12] 500 mcg PO W/SUPPER Baclofen [Lioresal] 5 mg PO BID PRN PRN Reason: Muscle Spasm [place]-3 Fatty Acids [[place]-3] 1,000 mg PO W/SUPPER Discharge Medication List Aspirin [Adult Low Dose Aspirin EC] 81 mg PO W/SUPPER 04/19/17 [History] Ubidecarenone [Co Q-10] 100 mg PO W/SUPPER 04/19/17 [History] Nitroglycerin Sl Tabs [Nitrostat] 0.4 mg SUBLINGUAL Q5M PRN #20 tab 04/22/17 [Rx] carvediloL [Coreg] 3.125 mg PO BID #180 tablet 04/22/17 [Rx] Atorvastatin Calcium [Lipitor] 40 mg PO HS 10/31/22 [History] Baclofen [Lioresal] 5 mg PO BID PRN 10/31/22 [History] Cyanocobalamin [Vitamin B-12] 500 mcg PO W/SUPPER 10/31/22 [History] [place]-3 Fatty Acids [[place]-3] 1,000 mg PO W/SUPPER 10/31/22 [History] Levofloxacin [Levaquin] 750 mg PO DAILY 7 Days #7 tab 11/01/22 [Rx] traMADol HCl [Ultram] 50 mg PO Q6HR PRN 3 Days #12 tab 11/01/22 [Rx] Follow up Appointment(s)/Referral(s): Efrain Gna MD [Primary Care Provider] - 11/07/22 12:40 pm () Marvin Calvert MD [STAFF PHYSICIAN] - 1 Week (Office is closed at time of discharge. Please call for follow-up appointment.) Patient Instructions/Handouts: Ureteral Stones (DC) Discharge Disposition: HOME SELF-CARE
== END 2022-11-01 11:28 | disposition home or self-care (01) ==
LOC: EC 01:00 → INTOOBSV 05:11 → 4SSUR 05:11 → UNDODISIN 11-01 11:28
PROVIDERS: ADMIT Family Medicine; ATTEND Family Medicine
PROC: 0T778DZ Dilation of Left Ureter with Intraluminal Device, Via Natural or Artificial Opening Endoscopic (ICD-10-PCS; principal; 2022-10-31 10:15)
DX: A41.9 Sepsis, unspecified organism (principal); N13.6 Pyonephrosis; I25.10 Atherosclerotic heart disease of native coronary artery without angina pectoris; E78.5 Hyperlipidemia, unspecified; I10 Essential (primary) hypertension; K57.90 Diverticulosis of intestine, part unspecified, without perforation or abscess without bleeding; Q63.8 Other specified congenital malformations of kidney; I25.2 Old myocardial infarction; Z79.82 Long term (current) use of aspirin; Z79.899 Other long term (current) drug therapy; Z88.0 Allergy status to penicillin; Z87.442 Personal history of urinary calculi; Z95.5 Presence of coronary angioplasty implant and graft; Z82.49 Family history of ischemic heart disease and other diseases of the circulatory system; Z84.1 Family history of disorders of kidney and ureter
CPT/HCPCS: 96361; 96374; 96375; 99285; 36415; 80053; 80048; 82150; 83690; 85025 ×2; 85610; 85730; 81001; 87040; 87086; 87077; 87186; 74176; 52332; G0378 ×2; C2625; C1769; J2250; J0330; J1100; J2405; J1956 ×2; J3010; J1885; J2704; J2001; 96365

== ENCOUNTER 2023-07-28 00:09 | Observation (INO) | payer MEDICARE ==
--- NOTE | 2023-07-28 00:31 | ED ---
General Adult HPI - General Source: patient, RN notes reviewed Mode of arrival: wheelchair Limitations: no limitations <Ross Fermin - Last Filed: 07/28/23 00:31> <Kobi Sloan - Last Filed: 07/28/23 05:37> - General Chief complaint: Chest Pain Stated complaint: chest pain Time Seen by Provider: 07/28/23 00:26 - History of Present Illness Initial comments: Patient is a 77-year-old female presents emergency department with concerns with chest discomfort. Onset of symptoms was a couple hours prior to arrival. Symptoms have been intermittent. Discomfort is currently 5/10. Discomfort feels like soreness. Patient has mild associated dyspnea. Patient was a little bit lightheaded earlier. No nausea. No diaphoresis. No history of similar symptoms previously. Patient does have history of 1 cardiac stent however had back discomfort associated with that. No back discomfort today. (Ross Fermin) - Related Data Home Medications Medication Instructions Recorded Confirmed Aspirin [Adult Low Dose Aspirin EC] 81 mg PO W/SUPPER 04/19/17 10/31/22 Ubidecarenone [Co Q-10] 100 mg PO W/SUPPER 04/19/17 10/31/22 Atorvastatin Calcium [Lipitor] 40 mg PO HS 10/31/22 10/31/22 Baclofen [Lioresal] 5 mg PO BID PRN 10/31/22 10/31/22 Cyanocobalamin [Vitamin B-12] 500 mcg PO W/SUPPER 10/31/22 10/31/22 [place]-3 Fatty Acids [[place]-3] 1,000 mg PO W/SUPPER 10/31/22 10/31/22 Previous Rx's Medication Instructions Recorded Nitroglycerin Sl Tabs [Nitrostat] 0.4 mg SUBLINGUAL Q5M PRN #20 tab 04/22/17 carvediloL [Coreg] 3.125 mg PO BID #180 tablet 04/22/17 Levofloxacin [Levaquin] 750 mg PO DAILY 7 Days #7 tab 11/01/22 traMADol HCl [Ultram] 50 mg PO Q6HR PRN 3 Days #12 tab 11/01/22 Allergies Allergy/AdvReac Type Severity Reaction Status Date / Time amoxicillin Allergy Rash/Hives Verified 07/28/23 00:14 Review of Systems ROS Other: All systems not noted in ROS Statement are negative. Constitutional: Denies: fever Eyes: Denies: eye pain ENT: Denies: ear pain Respiratory: Reports: as per HPI, dyspnea Cardiovascular: Reports: as per HPI, chest pain Endocrine: Denies: fatigue Gastrointestinal: Denies: abdominal pain Musculoskeletal: Denies: back pain <Ross Fermin - Last Filed: 07/28/23 00:31> ROS Other: All systems not noted in ROS Statement are negative. <Kobi Sloan - Last Filed: 07/28/23 05:37> ROS Statement: Those systems with pertinent positive or pertinent negative responses have been documented in the HPI. Past Medical History Past Medical History: Hyperlipidemia, Hypertension, Myocardial Infarction (AR) Last Myocardial Infarction Date:: 2017 History of Any Multi-Drug Resistant Organisms: None Reported Past Surgical History: Heart Catheterization With Stent Additional Past Surgical History / Comment(s): lithotripsy Date of Last Stent Placement:: 2017 Past Psychological History: No Psychological Hx Reported Smoking Status: Never smoker Past Alcohol Use History: None Reported Past Drug Use History: None Reported - Past Family History Mother Family Medical History: Hypertension, Renal Disease Father Family Medical History: No Reported History <Ross Fermin - Last Filed: 07/28/23 00:31> General Exam Limitations: no limitations General appearance: alert, in no apparent distress Head exam: Present: normocephalic Eye exam: Present: normal appearance Neck exam: Present: normal inspection Respiratory exam: Present: normal lung sounds bilaterally Cardiovascular Exam: Present: regular rate, normal rhythm, normal heart sounds Expanded Peripheral pulses: 2+: Radial (R), Radial (L), Posterior Tibialis (R), Posterior Tibialis (L) GI/Abdominal exam: Present: soft. Absent: tenderness Extremities exam: Present: normal inspection. Absent: pedal edema, calf tenderness Neurological exam: Present: alert Psychiatric exam: Present: normal affect, normal mood Skin exam: Present: normal color <Ross Fermin - Last Filed: 07/28/23 00:31> Course Vital Signs 07/28/23 07/28/23 07/28/23 00:11 01:14 02:28 Temperature 97.7 F Pulse Rate 72 60 65 Respiratory 16 18 18 Rate Blood Pressure 202/99 136/62 130/56 O2 Sat by Pulse 97 99 98 Oximetry EKG Findings - EKG Results: EKG: interpreted by ERMD (Left axis), sinus rhythm, normal QRS, normal ST/T <Ross Fermin - Last Filed: 07/28/23 00:31> Medical Decision Making <Ross Fermin - Last Filed: 07/28/23 00:31> - Lab Data Result diagrams: 07/28/23 00:35 07/28/23 00:35 <Kobi Sloan - Last Filed: 07/28/23 05:37> - Medical Decision Making Was pt. sent in by a medical professional or institution (, [facility], SURGICAL TECH, urgent care, hospital, or detention...) When possible be specific @ -[No] Did you speak to anyone other than the patient for history (EMS, parent, family, police, friend...)? What history was obtained from this source @ -[No] Did you review nursing and triage notes (agree or disagree)? Why? @ -[I reviewed and agree with nursing and triage notes] Were old charts reviewed (outside hosp., previous admission, EMS record, old EKG, old radiological studies, urgent care reports/EKG's, detention records)? Report findings @ -[No old charts were reviewed] Differential Diagnosis (chest pain, altered mental status, abdominal pain women, abdominal pain men, vaginal bleeding, weakness, fever, dyspnea, syncope, headache, dizziness, GI bleed, back pain, seizure, CVA, palpatations, mental health, musculoskeletal)? @ -Differential Chest Pain: Stable Angina, Unstable Angina, STEMI, NSTEMI Aortic Dissection, Pneumothorax, Musculoskeletal, Esophageal Spasm GERD, Cholecystitis, Pancreatitis, Zoster, this is not meant to be an all-inclusive list. EKG interpreted by me (3pts min.). @ -[As above] X-rays interpreted by me (1pt min.). @ -Ordered but pending CT interpreted by me (1pt min.). @ -[None done] U/S interpreted by me (1pt. min.). @ -[None done] What testing was considered but not performed or refused? (CT, X-rays, U/S, labs)? Why? @ -Chest x-ray pending What meds were considered but not given or refused? Why? @ -[None] Did you discuss the management of the patient with other professionals (professionals i.e. , PA, SURGICAL TECH, lab, RT, psych nurse, social media developer, manager recruiting, teacher, public health service officer, top case assembler)? Give summary @ -[No] Was smoking cessation discussed for >3mins.? @ -[No] Was critical care preformed (if so, how long)? @ -[No] Were there social determinants of health that impacted care today? How? (Homelessness, low income, unemployed, alcoholism, drug addiction, transportation, low edu. Level, literacy, decrease access to med. care, long-term, rehab)? @ -[No] Was there de-escalation of care discussed even if they declined (Discuss DNR or withdrawal of care, Hospice)? DNR status @ -[No] What co-morbidities impacted this encounter? (DM, HTN, Smoking, COPD, CAD, Cancer, CVA, ARF, Chemo, Hep., AIDS, mental health diagnosis, sleep apnea, morbid obesity)? @ -[None] Was patient admitted / discharged? Hospital course, mention meds given and route, prescriptions, significant lab abnormalities, going to OR and other pertinent info. @ -Patient presents with chest discomfort intermittent for the past couple hours. Labs and EKG and x-ray ordered. Case endorsed to Dr. Sloan ([facility]) 77-year-old female who was signed out to me pending results of cardiac workup. Briefly, patient has a history of cardiac stent, hypertension, hyperlipidemia. Presents with chest pain starting 2 hours prior to arrival as well as some mild shortness of breath. Received 1 nitro here and currently has Nitropaste on. Chest pain is resolved. No radiation of the pain. Nausea nausea or vomiting of the pain. States it was an achy sensation substernally. Currently pain-free. EKG showed no signs of acute ischemia. Labs remarkable for normal D-dimer as well as troponin that is undetectable. Chest x-ray read by myself shows no obvious acute cardiopulmonary process. At this time I did recommend admission and they were in agreement this plan. Patient will be admitted for cardiac evaluation. Troponins will be trended. I spoke with the admitting physician, Dr. Gan who accepted the admission. Diagnosis/symptom? @ -Chest pain Acute, or Chronic, or Acute on Chronic? @ -Acute Uncomplicated (without systemic symptoms) or Complicated (systemic symptoms)? @ -Complicated Side effects of treatment? @ -None Exacerbation, Progression, or Severe Exacerbation] @ -No Poses a threat to life or bodily function? @ -Possibly, yes (Kobi Sloan) - Lab Data Lab Results 07/28/23 07/28/23 07/28/23 Range/Units 00:35 00:35 00:35 WBC 6.9 (3.8-10.6) k/uL RBC 4.53 (3.80-5.40) m/uL Hgb 13.1 (11.4-16.0) gm/dL Hct 40.3 (34.0-46.0) % MCV 89.0 (80.0-100.0) fL MCH 29.0 (25.0-35.0) pg MCHC 32.6 (31.0-37.0) g/dL RDW 13.7 (11.5-15.5) % Plt Count 234 (150-450) k/uL MPV 8.5 Neutrophils % 51 % Lymphocytes % 31 % Monocytes % 8 % Eosinophils % 5 % Basophils % 1 % Neutrophils # 3.5 (1.3-7.7) k/uL Lymphocytes # 2.2 (1.0-4.8) k/uL Monocytes # 0.6 (0-1.0) k/uL Eosinophils # 0.3 (0-0.7) k/uL Basophils # 0.0 (0-0.2) k/uL PT 10.2 (10.0-12.5) sec INR 0.9 (<1.2) APTT 24.4 (22.0-30.0) sec D-Dimer 0.56 (<0.60) mg/L FEU Sodium 135 L (137-145) mmol/L Potassium 4.2 (3.5-5.1) mmol/L Chloride 106 (98-107) mmol/L Carbon Dioxide 20 L (22-30) mmol/L Anion Gap 9 mmol/L BUN 26 H (7-17) mg/dL Creatinine 0.87 (0.52-1.04) mg/dL Est GFR (CKD-EPI)AfAm 75 (>60 ml/min/1.73 sqM) Est GFR (CKD-EPI)NonAf 65 (>60 ml/min/1.73 sqM) Glucose 119 H (74-99) mg/dL Calcium 9.2 (8.4-10.2) mg/dL Magnesium 1.8 (1.6-2.3) mg/dL Total Bilirubin 0.9 (0.2-1.3) mg/dL AST 34 (14-36) U/L ALT 24 (4-34) U/L Alkaline Phosphatase 80 (38-126) U/L Troponin I (0.000-0.034) ng/mL NT-Pro-B Natriuret Pep 84 pg/mL Total Protein 6.5 (6.3-8.2) g/dL Albumin 4.1 (3.5-5.0) g/dL 07/28/23 Range/Units 00:35 WBC (3.8-10.6) k/uL RBC (3.80-5.40) m/uL Hgb (11.4-16.0) gm/dL Hct (34.0-46.0) % MCV (80.0-100.0) fL MCH (25.0-35.0) pg MCHC (31.0-37.0) g/dL RDW (11.5-15.5) % Plt Count (150-450) k/uL MPV Neutrophils % % Lymphocytes % % Monocytes % % Eosinophils % % Basophils % % Neutrophils # (1.3-7.7) k/uL Lymphocytes # (1.0-4.8) k/uL Monocytes # (0-1.0) k/uL Eosinophils # (0-0.7) k/uL Basophils # (0-0.2) k/uL PT (10.0-12.5) sec INR (<1.2) APTT (22.0-30.0) sec D-Dimer (<0.60) mg/L FEU Sodium (137-145) mmol/L Potassium (3.5-5.1) mmol/L Chloride (98-107) mmol/L Carbon Dioxide (22-30) mmol/L Anion Gap mmol/L BUN (7-17) mg/dL Creatinine (0.52-1.04) mg/dL Est GFR (CKD-EPI)AfAm (>60 ml/min/1.73 sqM) Est GFR (CKD-EPI)NonAf (>60 ml/min/1.73 sqM) Glucose (74-99) mg/dL Calcium (8.4-10.2) mg/dL Magnesium (1.6-2.3) mg/dL Total Bilirubin (0.2-1.3) mg/dL AST (14-36) U/L ALT (4-34) U/L Alkaline Phosphatase (38-126) U/L Troponin I <0.012 (0.000-0.034) ng/mL NT-Pro-B Natriuret Pep pg/mL Total Protein (6.3-8.2) g/dL Albumin (3.5-5.0) g/dL Disposition <Ross Fermin - Last Filed: 07/28/23 00:31> Time of Disposition: 01:56 <Kobi Sloan - Last Filed: 07/28/23 05:37> Clinical Impression: Chest pain Disposition: ADMITTED IP TO THIS HOSP Condition: Stable
[2023-07-28 01:01] LABS: Basophils % (A) 1 %; Eosinophils # (A) 0.3 k/uL (0-0.7); Eosinophils % (A) 5 %; HCT 40.3 % (34.0-46.0); HGB 13.1 gm/dL (11.4-16.0); Lymphocytes # (A) 2.2 k/uL (1.0-4.8); Lymphocytes % (A) 31 %; MCHC 32.6 g/dL (31.0-37.0); Mean Platelet Volume 8.5; Monocytes # (A) 0.6 k/uL (0-1.0); Monocytes % (A) 8 %; Neutrophils # (A) 3.5 k/uL (1.3-7.7); Neutrophils % (A) 51 %; Platelet Count 234 k/uL (150-450); RBC 4.53 m/uL (3.80-5.40); RDW 13.7 % (11.5-15.5); WBC 6.9 k/uL (3.8-10.6)
[2023-07-28] MEDS: NITROGLYCERIN OINT 1 INCH/GM PACKET TOPICAL STA (01:02)
[2023-07-28] MEDS: ASPIRIN 81 MG PO STA (01:02)
[2023-07-28] MEDS: NITROGLYCERIN SL TABS 0.4 MG TAB SUBLINGUAL STA ×3 (01:09→02:23)
[2023-07-28 01:14] LABS: ALT 24 U/L (4-34); AST 34 U/L (14-36); African American GFR (CKD) 75 (>60 ml/min/1.73 sqM); Albumin 4.1 g/dL (3.5-5.0); Alkaline Phosphatase 80 U/L (38-126); Anion Gap 9 mmol/L; Blood Urea Nitrogen 26 mg/dL (7-17); Calcium 9.2 mg/dL (8.4-10.2); Carbon Dioxide 20 mmol/L (22-30); Chloride 106 mmol/L (98-107); Glucose 119 mg/dL (74-99); Magnesium 1.8 mg/dL (1.6-2.3); Non-African American GFR(CKD) 65 (>60 ml/min/1.73 sqM); Potassium 4.2 mmol/L (3.5-5.1); Sodium 135 mmol/L (137-145); Total Bilirubin 0.9 mg/dL (0.2-1.3); Total Protein 6.5 g/dL (6.3-8.2)
[2023-07-28 01:19] LABS: INR 0.9 (<1.2); Partial Thromboplastin Time 24.4 sec (22.0-30.0); Prothrombin Time 10.2 sec (10.0-12.5)
[2023-07-28 01:22] LABS: NT-Pro-B-Type Natriuretic Pept 84 pg/mL
[2023-07-28] MEDS ORDERED: ONDANSETRON 4 MG/2 ML VIAL IVP PRN (01:47)
[2023-07-28] MEDS ORDERED: NALOXONE 0.4 MG/ML 1 ML VIAL IV PRN (01:47)
--- NOTE | 2023-07-28 03:36 | XR ---
EXAM: XR Chest, 2 Views CLINICAL HISTORY: ITS.REASON XR Reason: Chest Pain TECHNIQUE: Frontal and lateral views of the chest. COMPARISON: No relevant prior studies available. FINDINGS: Lungs: No consolidation or mass. Pleural space: No effusion. Heart: No cardiomegaly. Bones/joints: No acute findings. IMPRESSION: No acute cardiopulmonary process.
[2023-07-28] MEDS ORDERED: NITROGLYCERIN OINT 1 INCH/GM PACKET TOPICAL SCH (08:00)
[2023-07-28] MEDS ORDERED: DOBUTamine DRIP for NUC MED 500 MG/250 ML BAG IV ONE (08:00)
[2023-07-28] MEDS ORDERED: DOBUTamine DRIP for NUC MED 500 MG in DEXTROSE/WATER 1 250ML.BAG IV PRN (08:01)
[2023-07-28] MEDS: HEPARIN SODIUM,PORCINE 5,000 UNIT/ML 1 ML VIAL SQ SCH (08:49)
--- NOTE | 2023-07-28 09:37 | P.CRDCN ---
History of Present Illness History of present illness: HISTORY OF PRESENT ILLNESS: This is a 77-year-old female with a past medical history significant for hypertension, hyperlipidemia, moderate mitral regurgitation and coronary artery disease with previous stenting to the RCA. Patient follows in the office with Dr. De La Garza. We have been asked to see the patient in consultation for chest pain. Patient examined at the bedside. Patient states yesterday she was at home sitting in her chair when she developed soreness in her chest. She states that she felt mildly short of breath as well. She states the pain lasted for about 2 hours. She states she decided to come to the ER for further evaluation. She states the pain was already easing up by the time she got here. She did receive nitro but she is unsure how much this had helped as her pain was already improving. She does report that the pain happened approximately 2 hours after eating dinner last night. She thinks the pain may be related to GERD which she has a history of but does not take any medication. She state this discomfort did not feel similar to when she required stenting in 2018. DIAGNOSTICS: - EKG reveals sinus mechanism with T wave inversions in inferior leads. - Chest xray negative for acute process - Laboratory data: WBC 6.9. Hemoglobin 13.1. Platelet count 234. D-dimer 0.56. Sodium 135. Potassium 4.2. BUN 26. Creatinine 0.87. Magnesium 1.8. T roponin negative x 3 - Current home cardiac medication list has not been updated at the time of dict ation - Most recent echocardiogram obtained in January 2023 revealed ejection fraction 55 to 60%, moderate MR, mild TR, trace AR -Patient underwent Lexiscan stress test in August 2021 which was negative for ischemia - Cardiac catheterization history: April 2017 revealing 70 to 80% stenosis involving the mid RCA. No significant disease in circumflex or LAD. Patient underwent stenting of the RCA. REVIEW OF SYSTEMS: At the time of my exam: CONSTITUTIONAL: Denies fever or chills. HEENT: Denies blurred vision, vision changes, or eye pain. Denies hemoptysis CARDIOVASCULAR: Denies chest pain. Denies orthopnea. Denies PND. Denies palpitations RESPIRATORY: Denies shortness of breath. GASTROINTESTINAL: Denies abdominal pain. Denies nausea or vomiting. HEMATOLOGIC: Denies bleeding disorders. GENITOURINARY: Denies any blood in urine. SKIN: Denies pruitis. Denies rash. PHYSICAL EXAM: VITAL SIGNS: Reviewed. GENERAL: Well-developed in no acute distress. HEENT: Head is normocephalic. Pupils are equal, round. Sclerae anicteric. Mucous membranes of the mouth are moist. Neck supple. No JVD or thyromegaly LUNGS: Respirations even and unlabored. Lungs essentially clear to auscultation bilaterally. HEART: Regular rate and rhythm. S1 and S2 heard. Systolic murmur noted ABDOMEN: Soft. Nondistended. Nontender. EXTREMITIES: Normal range of motion. No clubbing or cyanosis. Peripheral pulses intact. No lower extremity edema NEUROLOGIC: Awake and alert. Oriented x 3. ASSESSMENT: Chest pain, troponin negative x 3 Coronary artery disease with previous stenting of the RCA, 2018 Hypertension Hyperlipidemia Moderate mitral regurgitation GERD PLAN: An acute coronary event has been ruled out Begin aspirin and Lipitor Add Protonix 40 mg daily for possible GERD symptoms Obtain 2D echo to assess cardiac structure and function Patient to undergo dobutamine stress test today Further recommendations pending patient course Nurse practitioner note has been reviewed by physician. Signing provider agrees with the documented findings, assessment, and plan of care documented by [employer] WAITRESS/WAITER as a scribe. Past Medical History Past Medical History: Hyperlipidemia, Hypertension, Myocardial Infarction ([place]) Last Myocardial Infarction Date:: 2017 History of Any Multi-Drug Resistant Organisms: None Reported Past Surgical History: Heart Catheterization With Stent Additional Past Surgical History / Comment(s): lithotripsy Date of Last Stent Placement:: 2017 Past Psychological History: No Psychological Hx Reported Smoking Status: Never smoker Past Alcohol Use History: None Reported Past Drug Use History: None Reported - Past Family History Mother Family Medical History: Hypertension, Renal Disease Father Family Medical History: No Reported History Medications and Allergies Home Medications Medication Instructions Recorded Confirmed Type Aspirin [Adult Low Dose Aspirin EC] 81 mg PO W/SUPPER 04/19/17 10/31/22 History Ubidecarenone [Co Q-10] 100 mg PO W/SUPPER 04/19/17 10/31/22 History Nitroglycerin Sl Tabs [Nitrostat] 0.4 mg SUBLINGUAL Q5M PRN #20 tab 04/22/17 10/31/22 Rx carvediloL [Coreg] 3.125 mg PO BID #180 tablet 04/22/17 10/31/22 Rx Atorvastatin Calcium [Lipitor] 40 mg PO HS 10/31/22 10/31/22 History Baclofen [Lioresal] 5 mg PO BID PRN 10/31/22 10/31/22 History Cyanocobalamin [Vitamin B-12] 500 mcg PO W/SUPPER 10/31/22 10/31/22 History [place]-3 Fatty Acids [[place]-3] 1,000 mg PO W/SUPPER 10/31/22 10/31/22 History Levofloxacin [Levaquin] 750 mg PO DAILY 7 Days #7 tab 11/01/22 Rx traMADol HCl [Ultram] 50 mg PO Q6HR PRN 3 Days #12 tab 11/01/22 Rx Allergies Allergy/AdvReac Type Severity Reaction Status Date / Time amoxicillin Allergy Rash/Hives Verified 07/28/23 00:14 Physical Exam Vitals: Vital Signs Temp Pulse Pulse Resp BP BP Pulse Ox 07/28/23 07:00 97.9 F 63 15 125/66 96 07/28/23 04:01 97.6 F 59 L 17 158/80 98 07/28/23 02:28 65 18 130/56 98 07/28/23 01:14 60 18 136/62 99 07/28/23 00:11 97.7 F 72 16 202/99 97 Intake and Output 07/27/23 07/28/23 07/28/23 22:59 06:59 14:59 Other: # Voids 1 Weight 68.946 kg Results 07/28/23 00:35 07/28/23 00:35 Cardiac Enzymes 07/28/23 07/28/23 07/28/23 Range/Units 00:35 00:35 05:48 AST 34 (14-36) U/L Troponin I <0.012 <0.012 (0.000-0.034) ng/mL Coagulation 07/28/23 Range/Units 00:35 PT 10.2 (10.0-12.5) sec APTT 24.4 (22.0-30.0) sec CBC 07/28/23 Range/Units 00:35 WBC 6.9 (3.8-10.6) k/uL RBC 4.53 (3.80-5.40) m/uL Hgb 13.1 (11.4-16.0) gm/dL Hct 40.3 (34.0-46.0) % Plt Count 234 (150-450) k/uL Comprehensive Metabolic Panel 07/28/23 Range/Units 00:35 Sodium 135 L (137-145) mmol/L Potassium 4.2 (3.5-5.1) mmol/L Chloride 106 (98-107) mmol/L Carbon Dioxide 20 L (22-30) mmol/L BUN 26 H (7-17) mg/dL Creatinine 0.87 (0.52-1.04) mg/dL Glucose 119 H (74-99) mg/dL Calcium 9.2 (8.4-10.2) mg/dL AST 34 (14-36) U/L ALT 24 (4-34) U/L Alkaline Phosphatase 80 (38-126) U/L Total Protein 6.5 (6.3-8.2) g/dL Albumin 4.1 (3.5-5.0) g/dL Current Medications Generic Name Dose Route Start Last Admin Trade Name Freq PRN Reason Stop Dose Admin Heparin Sodium (Porcine) 5,000 unit 07/28/23 09:00 Heparin Sodium,Porcine 5,000 Unit/Ml 1 Ml Vial SQ Q12HR JOVANNI Naloxone HCl 0.2 mg 07/28/23 01:47 Naloxone 0.4 Mg/Ml 1 Ml Vial IV Q2M PRN Opioid Reversal Nitroglycerin 1 inch 07/28/23 08:00 Nitroglycerin Oint 1 Inch/Gm Packet TOPICAL Q8HR JOVANNI Ondansetron HCl 4 mg 07/28/23 01:47 Ondansetron 4 Mg/2 Ml Vial IVP Q8HR PRN Nausea And Vomiting Intake and Output 07/27/23 07/28/23 07/28/23 22:59 06:59 14:59 Other: # Voids 1 Weight 68.946 kg 07/28/23 00:35 07/28/23 00:35
[2023-07-28] MEDS: PANTOPRAZOLE 40 MG TABLET PO SCH (11:16)
[2023-07-28] MEDS: carvediloL 3.125 MG TAB PO SCH (11:16)
[2023-07-28] MEDS: ASPIRIN 81 MG PO SCH (11:16)
[2023-07-28] MEDS: LOSARTAN 50 MG TAB PO SCH (11:16)
--- NOTE | 2023-07-28 13:04 | CA ---
Transthoracic Echo Report Name: Rosemarie Paulino Age: 77 Gender: F : 1945 Exam Date: 07/28/2023 08:30 Exam Location: [facility] Ht (in): 62 Wt (lb): 152 Ordering Physician: Felicita Potts Attending/Referring Phys: [id number], Delroy Raw Juice Weigher Lorenza Stephen RDCS Procedure CPT: Indications: LV function, CP Cardiac Hx: Technical Quality: Fair Contrast 1: Total Dose (mL): Contrast 2: Total Dose (mL): MEASUREMENTS (Male / Female) Normal Values 2D ECHO LV Diastolic Diameter PLAX 2.9 cm 4.2 - 5.9 / 3.9 - 5.3 cm LV Systolic Diameter PLAX 1.3 cm IVS Diastolic Thickness 1.5 cm 0.6 - 1.0 / 0.6 - 0.9 cm LVPW Diastolic Thickness 1.5 cm 0.6 - 1.0 / 0.6 - 0.9 cm LV Relative Wall Thickness 1.0 RV Internal Dim ED PLAX 3.5 cm LVOT Diameter 1.3 cm LA Volume 60.8 cm??? 18 - 58 / 22 - 52 cm??? LA Volume Index 34.6 cm???/m??? 16 - 28 cm???/m??? M-MODE Aortic Root Diameter MM 2.5 cm LA Systolic Diameter MM 3.2 cm LA Ao Ratio MM 1.3 AV Cusp Separation MM 1.5 cm DOPPLER AV Peak Velocity 143.8 cm/s AV Peak Gradient 8.3 mmHg AV Mean Velocity 88.0 cm/s AV Mean Gradient 3.8 mmHg AV Velocity Time Integral 32.2 cm LVOT Peak Velocity 97.5 cm/s LVOT Peak Gradient 3.8 mmHg LVOT Velocity Time Integral 33.2 cm LVOT Stroke Volume 42.7 cm??? LVOT Stroke Volume Index 25.1 ml/m??? LVOT Cardiac Index 1385.9 cm???/min???m??? AV Area Cont Eq vti 1.3 cm??? AV Area Cont Eq pk 0.9 cm??? MV Area PHT 3.0 cm??? Mitral E Point Velocity 59.7 cm/s Mitral A Point Velocity 114.6 cm/s Mitral E to A Ratio 0.5 MV Deceleration Time 251.3 ms MV E' Velocity 5.5 cm/s Mitral E to MV E' Ratio 10.8 TR Peak Velocity 291.2 cm/s TR Peak Gradient 33.9 mmHg Right Ventricular Systolic Press 38.9 mmHg FINDINGS Left Ventricle Moderately increased left ventricular wall thickness. Left ventricular cavity size normal. Normal left ventricular systolic function with no obvious regional wall motion abnormalities. Left ventricular ejection fraction is estimated at 55-60 %. Grade 1 diastolic dysfunction. Right Ventricle Mild right ventricular dilatation. Mild pulmonary hypertension. Right Atrium Normal right atrial size. Left Atrium Mildly increased left atrial volume. Mitral Valve Structurally normal mitral valve. Moderate mitral annular calcification. Mitral valve thickened. [id number] mitral regurgitation. Aortic Valve No aortic valve stenosis or regurgitation. Aortic valve sclerosis. Tricuspid Valve Structurally normal tricuspid valve. Mild tricuspid regurgitation. Pulmonic Valve Structurally normal pulmonic valve. Pericardium No pericardial effusion. Aorta Normal size aortic root and proximal ascending aorta. CONCLUSIONS Normal LV systolic function Mild to moderate mitral regurgitation Previewed by: Dr. Jacques Ruelas MD (Electronically Signed) Final Date: 28 July 2023 13:03
--- NOTE | 2023-07-28 13:10 | CA ---
Dobutamine Stress Echocardiogram Report Rosemarie Paulino Age: 77 Gender: F : 1945 Exam Date: 07/28/2023 10:08 Exam Location: [facility] Ordering Physician: Felicita Potts Referring Physician: [id number] Environment Artist: Sia Umanzor RDCS Technologist: Ht (in): 62 Wt (lb): 162 Procedure CPT: Indication: CP ICD-9 Codes: Rhythm: Patient History: CHEST PAIN, DIFFICULTY IN BREATHING, PALPITATIONS, HTN, HYPERCHOLESTEROLEMIA, FAMILY HX OF HEART DISEASE, PRIOR SMOKER, PRIOR CARDIAC CATH WITH STENTING Cardiac Medications: Medications in past 24 hours: Contrast: Total Dose (mL): Stress Results Protocol: Dobutamine Peak Dose (???g/kg/min): 30 Duration (min:sec): Atropine:(mg) None Target HR: 122 Double Product: [id number] Resting HR: 74 Resting BP: 184 / 88 Peak HR: 123 Peak BP: 200 / 86 Max Predicted HR: 143 86 % Max Predicted HR Stress Summary: BP Response: Reason for Termination: Target HR Cardiac Symptoms: NO SYMPTOMS ECG Analysis Resting EKG: Stress EKG: Arrhythmia: Echo Analysis Base Echo Analysis: Low Echo Anaylsis: Peak Echo Analysis: Recovery Echo: MEASUREMENTS (Male/Female) Normal Values CONCLUSIONS Normal electrocardiogram and echocardiogram in response to dobutamine Dr. Jacques Ruelas MD (Electronically Signed) Final Date: 28 July 2023 13:09
[2023-07-28 13:58] VITALS: BP 135/76; PULSE 77; RESP 16; TEMP 98.2
[2023-07-28] MEDS ORDERED: ATORVASTATIN 40 MG TAB PO SCH ×2 (21:00)
--- NOTE | 2023-07-28 21:22 | HP ---
HISTORY AND PHYSICAL CHIEF COMPLAINT: Chest pain. HISTORY OF PRESENT ILLNESS: This is another admission for this 77-year-old white female. She has had longstanding history of labile hypertension and hyperlipidemia. She developed a burning anterior chest pain and came to the emergency room. This was not like a pressure or squeezing sensation and there was no radiation into the jaw, back, arms, etc. She had no headache. She had no diaphoresis, shortness of breath. There is no nausea or vomiting. Studies in the ER were negative. Blood pressure was high, however. REVIEW OF SYSTEMS: Otherwise normal. ALLERGIES: Past medical history, family history and personal and social histories reveal that she is allergic to Questran, penicillin and niacin. MEDICATIONS: She is currently on, 1. Carvedilol. 2. Losartan. 3. Atorvastatin. 4. Vitamin D. 5. Aspirin. Remainder of her history is unremarkable. SOCIAL HISTORY: She does not smoke or drink. PHYSICAL EXAMINATION: VITAL SIGNS: Blood pressure is high at 202/99. HEENT: Head, ears, eyes, nose, mouth. and throat are normal. CHEST: Clear. CARDIAC: Normal sinus rhythm and no murmurs or extra sounds. ABDOMEN: Soft, nontender. EXTREMITIES: Normal. NEUROLOGICAL: She is intact. DIAGNOSES: She is admitted to the hospital with diagnoses, 1. Anterior chest pain. 2. History of hypertension. 3. Hypercholesterolemia. PLAN: 1. Bedrest. 2. IV fluids. 3. Serial EKGs and enzymes. 4. Cardiology consult. MMODL / IJN: [id number] /
--- NOTE | 2023-07-28 21:34 | DS ---
DISCHARGE SUMMARY CHIEF COMPLAINT: Chest pain. HISTORY OF PRESENT ILLNESS AND PHYSICAL EXAMINATION: Details of this lady's history and physical can be found in the initial workup. LABORATORY STUDIES: While she was in the hospital, she had laboratory studies, details of which can be found in the laboratory section of her chart. COURSE IN THE HOSPITAL: After admission, she was placed on bedrest, started intravenous fluids and serial EKGs and enzymes which were normal. She was seen by Cardiology and she was taken for a stress test which was negative and it was felt she could be discharged. She will go home on her usual diet, activity, medications, and will follow up in several days. FINAL DIAGNOSES: 1. Atypical chest pain. 2. Esophagitis. 3. History of hypertension. 4. History of hyperlipidemia. OPERATIONS: None. CONSULTATIONS: Cardiology, she is improved. MMODL / IJN: [id number] /
[2023-07-29] MEDS ORDERED: NON FORMULARY DRUG (Aspirin [Adult Low Dose Aspirin Ec] 81 MG Tablet.Dr) PO SCH (09:00)
== END 2023-07-28 15:45 | disposition home or self-care (01) ==
LOC: EC 00:09 → 6NMEDSUR 01:49
PROVIDERS: ADMIT Family Medicine; ATTEND Family Medicine
DX: R07.89 Other chest pain (principal); K21.00 Gastro-esophageal reflux disease with esophagitis, without bleeding; I25.10 Atherosclerotic heart disease of native coronary artery without angina pectoris; I10 Essential (primary) hypertension; I34.0 Nonrheumatic mitral (valve) insufficiency; E78.00 Pure hypercholesterolemia, unspecified; Z79.82 Long term (current) use of aspirin; Z79.899 Other long term (current) drug therapy; Z88.0 Allergy status to penicillin; Z95.5 Presence of coronary angioplasty implant and graft; Z88.8 Allergy status to other drugs, medicaments and biological substances
CPT/HCPCS: 96372; 99285; 36415; 93306; 93351; 85379; 83880; 80053; 83735; 84484; 85025; 85610; 85730; 71046; G0378; J1250; J1644

== ENCOUNTER → 2023-12-11 | Outpatient (CLI) | payer MEDICARE ==
--- NOTE | 2023-12-20 17:10 | MM ---
Reason for Exam: Screening (asymptomatic). Last mammogram was performed 2 year(s) and 5 month(s) ago. Patient History: Menarche at age 12. First Full-Term at age 25. Postmenopausal. Hormonal Contraceptives for 2 years from age 26 until age 28. Paternal aunt (gr) had breast cancer at or over age 50. Risk Values: Kristel 5 year model risk: 1.9%. NCI Lifetime model risk: 3.4%. Prior Study Comparison: 12/05/2015 Bilateral Screening Mammogram, [facility]. 01/05/2017 Bilateral Screening Mammogram, [facility]. 01/21/2018 Bilateral Screening Mammogram, [facility]. 03/09/2019 Bilateral Screening Mammogram, [facility]. 03/15/2020 Bilateral MG 3D screening mammo w/cad, [facility]. 07/11/2021 Bilateral MG 3D screening mammo w/cad, [facility]. Tissue Density: The breasts are heterogeneously dense, which may obscure small masses. Findings: Analyzed By CAD. The pattern is symmetrical. Multiple benign linear calcifications are present. Benign spherical calcifications are present. No suspicious groups of microcalcifications, spiculated or lobular masses, architectural distortion or other secondary signs of malignancy are mammographically apparent. Overall Assessment: Benign, BI-RAD 2 Management: Screening Mammogram of both breasts in 1 year. A negative mammogram report should not preclude additional follow up of suspicious palpable abnormalities. Patient should continue monthly self breast exam. A clinical breast exam by your physician is recommended on an annual basis and results should be correlated with mammographic findings. Note on Kristel scores and lifetime risk: 1. A Kristel score greater than 3% is considered moderate risk. If this is the case, consider specialist referral to assess eligibility for a risk reducing agent. 2. If overall lifetime risk for the development of breast cancer is 20% or higher, the patient may qualify for future screening with alternating mammogram and breast MRI. [facility], , 12/20/2023 5:07 PM. Electronically signed and approved by: Vu Webster D.O. Radiologis
== END | disposition home or self-care (01) ==
LOC: RADMAMWWP 12:21
PROVIDERS: ATTEND Family Medicine
DX: Z12.31 Encounter for screening mammogram for malignant neoplasm of breast (principal); Z78.0 Asymptomatic menopausal state; Z80.3 Family history of malignant neoplasm of breast; R92.333 Mammographic heterogeneous density, bilateral breasts
CPT/HCPCS: 77063; 77067